=== PATIENT | female | born 1940 | race Caucasian/White ===

== ENCOUNTER 2019-08-30 15:49 | Inpatient (IN) ==
--- NOTE | 2019-08-30 16:48 | ERNOTE ---
Dizziness ER Record Date of Service: 08/30/19 Presenting Symptoms: weakness Time Seen by Provider: 08/30/19 16:37 Source: patient, family, RN notes reviewed Exam Limitations: dementia Immunizations: IMMUNIZATION HX Immunizations Up to Date Yes History of Influenza Vaccine No Hx Pneumococcal Vaccination No Allergies/Adverse Reactions: Allergies Allergy/AdvReac Type Severity Reaction Status Date / Time metronidazole [From Flagyl] Allergy Verified 08/30/19 16:01 Sulfa (Sulfonamide Allergy Verified 08/30/19 16:01 Antibiotics) Home Medications: HOME MEDICATIONS HYDROcodone/ACETAMINOPHEN [[place] 5-325 Tablet] 1 - 2 tab PO Q6H PRN #16 tab 02/06/16 [Last Taken Unknown] - History of Present Illness Narrative: 79 year old female patient brought to the ED from home by her family for weakness and confusion. She has dementia but lives independently with her boyfriend. She is usually able to do her own self cares but has not even been getting up to use the bathroom for the past few days. Her daughter reports that she has been coughing and seems more congested than usual. She was given a breathing treatment [employer]. Timing and Duration: gradual onset Decreased ability to stand/walk:: Present: bed-ridden Usually:: Present: walks w/o assistance Prior Treament: Denies: recently seen Review of Systems - Review of Systems Constitutional: Present: fatigue, malaise, decreased activity level EYE: Present: no symptoms reported ENT: Absent: nose congestion, sore throat Respiratory: Present: shortness of breath, cough. Absent: orthopnea Cardiology: Absent: chest pain, palpitations Gastrointestinal/Abdominal: Present: eating less, drinking less. Absent: vomiting, diarrhea, abdominal pain Genitourinary: Absent: dysuria, hematuria Musculoskeletal: Present: back pain, muscle pain Skin: Absent: rash, lesions, lumps, change in color Neurological: Present: dizziness/light-headedness, weakness. Absent: headache Endocrine: Present: no symptoms reported Hematologic/Lymphatic: Present: easy bruising, easy bleeding Psych: Present: no symptoms reported Medical History (Updated 08/30/19 @ 16:03 by Mary Kim RN) Family history of Alzheimer's disease History of COPD History of dementia History of neuropathy Hx of gastritis Hx of hiatal hernia Hx of hyperlipidemia Hx of hysterectomy Surgical History: Surgical History (Updated 08/30/19 @ 16:03 by Mary Kim RN) Hx of cholecystectomy Family History: Family History (Updated 08/30/19 @ 16:03 by Mary Kim RN) Other No pertinent family history Social History: (Last Reviewed 08/30/19 @ 18:31 by Selena Jackson NP) Social History: lives independently: Yes lives independently comment: w/ boyfriend household members: significant other Tobacco: Smoking Status: Former smoker Alcohol: alcohol intake: never Physical Exam - Physical Exam General Appearance: Present: alert, no apparent distress, obese Head Exam: Present: normal inspection Eye Exam: Normal inspection: bilateral Ears, Nose, Throat: Present: normal ENT inspection, normal pharynx Neck: Present: normal inspection, nontender, supple Respiratory: Present: no respiratory distress, accessory muscle use, expiration (prolonged), rales - Right lower lung Cardiovascular/Chest: Present: regular rate, rhythm, no murmur, normal peripheral pulses Gastrointestinal/Abdominal: Present: nontender, nondistended, soft Extremity Exam: Present: non-tender, pedal edema Neurological Exam: Present: alert, normal mood/affect, other - confused at times, pleasant Skin Exam: Present: warm/dry, pallor Progress - Results and Orders Patient's Lab Results:: I have reviewed the patient's lab results. - Vital Signs Patient's Vital Signs:: I have reviewed the patient's vital signs. Vital Signs: Vital Signs 08/30/19 15:58 08/30/19 16:00 Temperature 36.7 C 36.7 C Pulse Rate 81 85 Respiratory Rate 14 15 Blood Pressure 104/50 101/52 O2 Sat by Pulse Oximetry 91 L 97 - X-Ray X-Ray #1 X-Ray: chest Interpretation: Reviewed by me X-ray Comments: Technique: Single AP view of the chest obtained. Comparison: 02/06/2016 Findings: There is patchy consolidation in the right upper lobe and the right mid to lower lung field. There is some consolidation in the right lung base which may be atelectasis as there is elevation of the right hemidiaphragm. There is cardiomegaly. Vascularity appears within normal limits. IMPRESSION: RIGHT LUNG CONSOLIDATION APPEARS TO BE MULTILOBAR PNEUMONIA. RECOMMEND APPROPRIATE THERAPY AND FOLLOW-UP CHEST X-RAYS TO RESOLUTION OF THIS CONSOLIDATION TO EXCLUDE UNDERLYING PATHOLOGY. MILD CARDIOMEGALY. Electronically signed by Jai Cho M.D.. - Progress/Reassessment Chief Complaint: Dizziness Progress:: Unchanged Plan - Plan Plan: [place] [address] but a normal lactate. Her xray shows a right multilobar pneumonia. Her PSI score places her in risk category IV. Dr. Flores was contacted for admission. The patient will be started on Rocephin and Zithromax. Departure Clinical Impression: Pneumonia Qualifiers: Pneumonia type: due to unspecified organism Laterality: right Lung location: unspecified part of lung Qualified Code(s): J18.9 - Pneumonia, unspecified organism - Departure Disposition: Still a patient Condition: Stable
[2019-08-30 17:09] LABS: Hematocrit 27.5 % (37.0-47.0); Hemoglobin 8.8 gm/dL (12.5-16.0); Mean Cell Volume 87.9 fl (78-100); Mean Corpuscular Hemoglobin 28.1 pg (27-31); Mean Platelet Volume 10.5 fl (8-12.5); Platelet Count 227 K/mm3 (150-450); Red Blood Count 3.13 M/mm3 (4.2-5.4); Red Cell Distribution Width 16.3 % (11.5-14.0)
[2019-08-30 17:23] LABS: Total Cells Counted 100
[2019-08-30 17:27] LABS: Hypersegmented Polys Trace; Lymphocyte 14 % (20-51); Monocyte 2 % (0-9); Neutrophil 84 % (42-75); Neutrophil # 18.5 K/mm3 (1.3-6.0); Platelet Estimate Normal (NORMAL)
[2019-08-30 17:28] LABS: Ovalocytes Trace
[2019-08-30 17:29] LABS: ALT 12 U/L (19-67); AST 18 U/L (0-48); Albumin * 2.9 gm/dl (3.4-5.0); Alkaline Phosphatase * 101 U/L (50-170); Anion Gap 13.6 mmol/L (6.8-13.8); BNP * 819 pg/mL (5-550); Bilirubin, Total 0.7 mg/dL (0.0-1.1); Blood Urea Nitrogen 21 mg/dL (3-23); Ca. Corrected For Albumin 8.9 mg/dL (8.4-10.2); Calcium * 8.3 mg/dL (7.9-10.9); Carbon Dioxide 24.6 mmol/L (24-32.6); Chloride 106 mmol/L (97-106); Glucose * 111 mg/dL (70-110); Potassium 4.2 mmol/L (3.4-4.6); Sodium 140 mmol/L (132-142); Total Protein 6.5 gm/dL (6.2-8.2); Troponin I Less than 0.017 ng/mL (0.00-0.10)
[2019-08-30 17:48] LABS: Urine Bilirubin Negative (NEGATIVE); Urine Blood Negative /ul (NEGATIVE); Urine Ketone Negative (NEGATIVE); Urine Nitrite Negative (NEGATIVE); Urine Protein Negative (NEGATIVE); Urine Urobilinogen Normal (NORMAL); Urine pH 6.5 pH (5.0-7.0)
[2019-08-30 17:54] LABS: Urine Appearance Clear (CLEAR); Urine Bacteria 1+; Urine Color Pale Yellow; Urine RBC None Seen /hpf (0-5); Urine Renal Epithelial Cell TRACE /hpf; Urine WBC None Seen /hpf (0-5)
[2019-08-30] MEDS ORDERED: AZITHROMYCIN 250 MG TABLET PO ONE (18:37)
--- NOTE | 2019-08-30 18:45 | HP ---
Chief Complaint - Chief Complaint Date of Service: 08/30/19 Time of Service: 18:22 Chief Complaint: Altered mental status, hypoxia History of Present Illness: 79-year-old female with a past medical history of COPD, dementia, gastritis, hyperlipidemia presents with complaints of shortness of breath and altered mental status. Per her daughter and son who are at bedside symptoms began a few days ago. She began becoming more confused and unable to do her daily ADLs. Today she was found to have hypoxia with an oxygen saturation of 85%. Her family brought her to the emergency room. In the ER she was found to have leukocytosis of 22,000, anemia with H&H of 8.8/27.5, trace bacteria in the urine, chest x-ray shows right multilobar pneumonia. She is admitted for further event evaluation and management of pneumonia with status. Medical History (Updated 08/30/19 @ 18:49 by Meme Flores MD) Family history of Alzheimer's disease History of COPD History of dementia History of neuropathy Hx of gastritis Hx of hiatal hernia Hx of hyperlipidemia Hx of hysterectomy Surgical History: Surgical History (Updated 08/30/19 @ 16:03 by Mary Kim RN) Hx of cholecystectomy Family History: Family History (Updated 08/30/19 @ 16:03 by Mary Kim RN) Other No pertinent family history Social History: (Last Reviewed 08/30/19 @ 18:31 by Selena Jackson NP) Social History: lives independently: Yes lives independently comment: w/ boyfriend household members: significant other Tobacco: Smoking Status: Former smoker Alcohol: alcohol intake: never Review Of Systems (GEN) - Review of Systems Generalized/Overall Review: Present: Weakness. Absent: Chills, Fever EENTM: Absent: Eye Pain Respiratory: Present: Cough. Absent: Shortness of Breath Cardiac: Absent: Chest Pain Abdominal: Absent: Abdominal Pain Musculoskeletal: Present: Joint Pain Misc: All systems neg except as marked Immunizations: IMMUNIZATION HX Immunizations Up to Date Yes History of Influenza Vaccine No Hx Pneumococcal Vaccination No Allergies/Adverse Reactions: Allergies Allergy/AdvReac Type Severity Reaction Status Date / Time metronidazole [From Flagyl] Allergy Verified 08/30/19 16:01 Sulfa (Sulfonamide Allergy Verified 08/30/19 16:01 Antibiotics) Home Medications: HOME MEDICATIONS Acetaminophen [Tylenol] 500 mg PO Q3H PRN 08/30/19 [Last Taken Unknown] Albuterol Sulfate [Albuterol Sulfate 2.5 MG/0.5ML] 1 vial INHALATION BID 08/30/19 [Last Taken Unknown] Albuterol Sulfate [Albuterol Sulfate 2.5 MG/0.5ML] 1 vial INHALATION Q4H PRN 08/30/19 [Last Taken Unknown] Albuterol Sulfate [Proair Respiclick] 90 mcg INHALATION BID PRN 08/30/19 [Last Taken Unknown] Aspirin 81 mg PO DAILY 08/30/19 [Last Taken Unknown] Atorvastatin Calcium 10 mg PO DAILY 08/30/19 [Last Taken Unknown] Celecoxib 200 mg PO DAILY 08/30/19 [Last Taken Unknown] Citalopram Hydrobromide [Celexa] 40 mg PO DAILY 08/30/19 [Last Taken Unknown] Diltiazem HCl [Diltiazem 12Hr ER] 120 mg PO DAILY 08/30/19 [Last Taken Unknown] Donepezil HCl 10 mg PO DAILY 08/30/19 [Last Taken Unknown] Esomeprazole Magnesium 40 mg PO DAILY 08/30/19 [Last Taken Unknown] Fluticasone Propion/Salmeterol [Advair 500-50 Diskus] 2 puff INHALATION BID 08/30/19 [Last Taken Unknown] Fluticasone Propionate [Flovent Diskus] 50 mcg INHALATION DAILY 08/30/19 [Last Taken Unknown] Ipratropium Bolton [Ipratropium Bolton (Atrovent)] 0.5 mg INHALATION PRN PRN 08/30/19 [Last Taken Unknown] Isosorbide Dinitrate 30 mg PO DAILY 08/30/19 [Last Taken Unknown] Meclizine HCl 25 mg PO TID 08/30/19 [Last Taken Unknown] Melatonin 5 mg PO HS 08/30/19 [Last Taken Unknown] Memantine HCl 5 mg PO DAILY 08/30/19 [Last Taken Unknown] Montelukast Sodium [Singulair] 10 mg PO HS 08/30/19 [Last Taken Unknown] Nystatin 15 gm TOPICAL DAILY 08/30/19 [Last Taken Unknown] Polyethylene Glycol 3350 [Gavilax] 17 gm PO DAILY 08/30/19 [Last Taken Unknown] Pregabalin [Lyrica] 50 mg PO TID 08/30/19 [Last Taken Unknown] guaiFENesin [Mucus ER] 600 mg PO BID PRN 08/30/19 [Last Taken Unknown] traMADol HCL [Tramadol HCl] 50 mg PO Q6H PRN 08/30/19 [Last Taken Unknown] Exam - Exam Vital Signs: Vital Signs - Last Taken Temp 36.7 C 08/30/19 16:00 Pulse 83 08/30/19 18:30 Resp 15 08/30/19 18:30 BP 106/47 08/30/19 18:30 Pulse Ox 94 08/30/19 18:30 Constitutional: Present: Alert, Cooperative, Well developed, Well nourished, No distress, Elderly ENT Exam: Present: hearing grossly normal, moist mucous membranes Eye Exam: bilateral eye: normal inspection, PERRL, EOMI Neck: Present: non-tender, normal inspection. Absent: lymphadenopathy (R), lymphadenopathy (L) Back Exam: Present: normal inspection, no CVA tenderness Respiratory: Present: no accessory muscle use, rhonchi - Right lower lung rick, wheezing - Mild expiratory wheeze in bilateral lung rick. Absent: lungs clear, respiratory distress, crackles Cardiovascular/Chest: Present: normal peripheral pulses, regular rate, rhythm, no edema, no murmur Peripheral Pulses: dorsalis-pedis (R): 1+, dorsalis-pedis (L): 1+ Abdomen: Present: Normal bowel sounds, soft, nontender Extremity: Present: non-tender, no pedal edema Skin Exam: Present: normal color, warm/dry Neurologic: Present: alert, normal mood/affect Appearance: Present: impaired insight. Absent: appropriate insight Eye contact: Present: cooperative, good eye contact Thoughts: Present: normal mood /affect Diagnostic Studies: Abnormal Lab Results 08/30/19 08/30/19 08/30/19 Range/Units 16:50 16:50 17:35 WBC 22.0 H (4.0-10.5) K/mm3 RBC 3.13 L (4.2-5.4) M/mm3 Hgb 8.8 L (12.5-16.0) gm/dL Hct 27.5 L (37.0-47.0) % RDW 16.3 H (11.5-14.0) % Neutrophils % (Manual) 84 H (42-75) % Lymphocytes % (Manual) 14 L (20-51) % Neutrophils # (Manual) 18.5 H (1.3-6.0) K/mm3 Est GFR (Non-Af Amer) 57 L (60-130) mL/min Random Glucose 111 H (70-110) mg/dL ALT 12 L (19-67) U/L B-Natriuretic Peptide 819 H (5-550) pg/mL Albumin 2.9 L (3.4-5.0) gm/dl Urine Bacteria 1+ H (NONE) Laboratory Results WBC 22.0 K/mm3 (4.0-10.5) H 08/30/19 16:50 RBC 3.13 M/mm3 (4.2-5.4) L 08/30/19 16:50 Hgb 8.8 gm/dL (12.5-16.0) L 08/30/19 16:50 Hct 27.5 % (37.0-47.0) L 08/30/19 16:50 MCV 87.9 fl (78-100) 08/30/19 16:50 MCH 28.1 pg (27-31) 08/30/19 16:50 MCHC 32.0 g/dl (32-36) 08/30/19 16:50 RDW 16.3 % (11.5-14.0) H 08/30/19 16:50 Plt Count 227 K/mm3 (150-450) 08/30/19 16:50 MPV 10.5 fl (8-12.5) 08/30/19 16:50 84 % (42-75) H 08/30/19 16:50 14 % (20-51) L 08/30/19 16:50 2 % (0-9) 08/30/19 16:50 18.5 K/mm3 (1.3-6.0) H 08/30/19 16:50 3.1 k/mm3 (1.5-3.5) 08/30/19 16:50 0.4 k/mm3 (0.0-1.0) 08/30/19 16:50 Trace 08/30/19 16:50 Normal (NORMAL) 08/30/19 16:50 Trace 08/30/19 16:50 Sodium 140 mmol/L (132-142) 08/30/19 16:50 140 mmol/L (130-142) 08/30/19 16:50 Potassium 4.2 mmol/L (3.4-4.6) 08/30/19 16:50 Chloride 106 mmol/L (97-106) 08/30/19 16:50 Carbon Dioxide 24.6 mmol/L (24-32.6) 08/30/19 16:50 13.6 mmol/L (6.8-13.8) 08/30/19 16:50 BUN 21 mg/dL (3-23) 08/30/19 16:50 1.00 mg/dL (0.4-1.4) 08/30/19 16:50 Est GFR (Non-Af Amer) 57 mL/min (60-130) L 08/30/19 16:50 21.0 (9.0-21.6) 08/30/19 16:50 111 mg/dL (70-110) H 08/30/19 16:50 1.1 mmol/L (0.4-2.0) 08/30/19 16:50 Calcium 8.3 mg/dL (7.9-10.9) 08/30/19 16:50 Calcium Adj for Albumin 8.9 mg/dL (8.4-10.2) 08/30/19 16:50 0.7 mg/dL (0.0-1.1) 08/30/19 16:50 AST 18 U/L (0-48) 08/30/19 16:50 ALT 12 U/L (19-67) L 08/30/19 16:50 101 U/L (50-170) 08/30/19 16:50 Less than 0.017 ng/mL (0.00-0.10) 08/30/19 16:50 B-Natriuretic Peptide 819 pg/mL (5-550) H 08/30/19 16:50 6.5 gm/dL (6.2-8.2) 08/30/19 16:50 2.9 gm/dl (3.4-5.0) L 08/30/19 16:50 Pale yellow 08/30/19 17:35 Clear (CLEAR) 08/30/19 17:35 6.5 pH (5.0-7.0) 08/30/19 17:35 Ur Specific Hecker 1.010 SP.GR. (1.005-1.010) 08/30/19 17:35 Negative mg/dL (NEGATIVE) 08/30/19 17:35 Negative mg/dL (NEGATIVE) 08/30/19 17:35 Negative mg/dL (NEGATIVE) 08/30/19 17:35 Negative /ul (NEGATIVE) 08/30/19 17:35 Negative (NEGATIVE) 08/30/19 17:35 Negative mg/dl (NEGATIVE) 08/30/19 17:35 Normal EU/dl (NORMAL) 08/30/19 17:35 Ur Leukocyte Esterase Negative /ul (NEGATIVE) 08/30/19 17:35 None seen /hpf (0-5) 08/30/19 17:35 None seen /hpf (0-5) 08/30/19 17:35 Ur Epithelial Cells 0-5 /hpf (0-5) 08/30/19 17:35 Ur Renal Epithelial Cell Trace /hpf (NONE) 08/30/19 17:35 1+ (NONE) H 08/30/19 17:35 Culture to follow 08/30/19 17:35 Assessment/Plan - Narrative Narrative: 79-year-old female with a past medical history of COPD, dementia, gastritis, hyperlipidemia presents with complaints of shortness of breath and altered mental status. She is admitted for further event evaluation and management of pneumonia with status. She was started on azithromycin and ceftriaxone. Plan #1 continue with azithromycin and ceftriaxone #2 follow-up urine culture #3 obtain CMP and CBC in the morning #4 out of bed to chair #5 oxygen supplementation as needed to keep oxygenation greater than 92% #6 resume home medications for chronic comorbidities #7 diet soft, regular #8 monitor for any signs of bleeding - Assessment/Plan (1) Pneumonia Problem: Acute Qualifiers: Pneumonia type: due to group B Streptococcus Laterality: right Lung location: unspecified part of lung Qualified Code(s): J15.3 - Pneumonia due to streptococcus, group B (2) COPD (chronic obstructive pulmonary disease) Problem: Chronic (3) Anemia Problem: Chronic (4) Dementia Problem: Chronic (5) Confusion Problem: Acute (6) UTI (urinary tract infection) Problem: Suspected
[2019-08-30] MEDS: MONTELUKAST SODIUM 10 MG TABLET PO SCH (21:19)
[2019-08-30] MEDS: MELATONIN 3,000 MCG TABLET PO SCH (21:37)
[2019-08-31] MEDS: ACETAMINOPHEN 500 MG TABLET PO PRN ×2 (00:26→20:41)
[2019-08-31] MEDS: ALBUTEROL SULFATE 2.5 MG/0.5 ML VIAL.NEB IH PRN ×2 (00:37→21:08)
[2019-08-31 05:36] LABS: Hematocrit 29.5 % (37.0-47.0); Hemoglobin 9.3 gm/dL (12.5-16.0); Mean Cell Volume 88.6 fl (78-100); Mean Corpuscular Hemoglobin 27.9 pg (27-31); Mean Corpuscular Hgb Conc 31.5 g/dl (32-36); Mean Platelet Volume 10.6 fl (8-12.5); Neutrophil # 18.8 K/mm3 (1.3-6.0); Neutrophil % 87.2 % (42-75.0); Platelet Count 233 K/mm3 (150-450); Red Blood Count 3.33 M/mm3 (4.2-5.4); Red Cell Distribution Width 16.2 % (11.5-14.0); White Blood Count 21.5 K/mm3 (4.0-10.5)
[2019-08-31 05:56] LABS: Albumin * 3.1 gm/dl (3.4-5.0); Anion Gap 14.8 mmol/L (6.8-13.8); BUN/Creatinine Ratio 23.3 (9.0-21.6); Bilirubin, Total 0.5 mg/dL (0.0-1.1); Ca. Corrected For Albumin 8.9 mg/dL (8.4-10.2); Calcium * 8.5 mg/dL (7.9-10.9); Carbon Dioxide 24.1 mmol/L (24-32.6); Potassium 3.9 mmol/L (3.4-4.6); Total Protein 6.9 gm/dL (6.2-8.2)
[2019-08-31] MEDS: PANTOPRAZOLE SODIUM 40 MG TABLET.EC PO SCH (07:36)
[2019-08-31] MEDS: MEMANTINE HCL 10 MG TABLET PO SCH (08:46)
[2019-08-31] MEDS: DONEPEZIL HCL 10 MG TABLET PO SCH (08:46)
[2019-08-31] MEDS: CITALOPRAM HYDROBROMIDE 20 MG TABLET PO SCH (08:47)
[2019-08-31] MEDS: NYSTATIN 30 APPL TUBE TP SCH (08:48)
[2019-08-31] MEDS: POLYETHYLENE GLYCOL 3350 17 GM PACKET PO SCH (08:48)
[2019-08-31] MEDS: PREGABALIN 50 MG CAPSULE PO SCH ×3 (08:51→17:45)
[2019-08-31] MEDS ORDERED: DILTIAZEM HCL 60 MG CAP.SR.12H PO SCH (09:00)
[2019-08-31] MEDS ORDERED: ROSUVASTATIN CALCIUM 10 MG TABLET PO SCH (09:00)
[2019-08-31] MEDS ORDERED: FLU VACC QS2019-20(6MOS UP)/PF 60 MCG/0.5 ML SYRINGE IM ONE (10:00)
[2019-08-31] MEDS: AZITHROMYCIN 500 MG in DEXTROSE 5 % IN WATER 250 ML IV SCH ×2 (10:06)
[2019-08-31] MEDS: ENOXAPARIN SODIUM 40 MG/0.4 ML SYRG SC SCH (11:06)
[2019-08-31] MEDS: ISOSORBIDE DINITRATE 10 MG TABLET PO SCH (11:08)
--- NOTE | 2019-08-31 11:58 | PN ---
Subjective - Date and Time Seen Date: 08/31/19 Time: 08:55 Subjective Narrative: She denies shortness of breath and complains of a right breast tenderness. She complains of knee pain and irritation in her groin. Denies cough Objective - Review of Systems Generalized/Overall Review: Denies: Chills, Fever Respiratory: Denies: Cough, Shortness of Breath Cardiac: Reports: Chest Pain - Right breast tenderness Abdominal: Denies: Abdominal Pain Musculoskeletal Complaints: Reports: Joint Pain - In her knees Misc: All systems neg except as marked - Vitals Vitals: Last Vital Signs Temp 37.2 C 08/31/19 10:30 Pulse 83 08/31/19 10:30 Resp 20 08/31/19 10:30 BP 153/63 H 08/31/19 10:30 Pulse Ox 93 08/31/19 10:30 - Abnormal Lab Findings Abnormal Lab Findings: Abnormal Lab Results 08/30/19 08/30/19 08/30/19 Range/Units 16:50 16:50 17:35 WBC 22.0 H (4.0-10.5) K/mm3 RBC 3.13 L (4.2-5.4) M/mm3 Hgb 8.8 L (12.5-16.0) gm/dL Hct 27.5 L (37.0-47.0) % MCHC (32-36) g/dl RDW 16.3 H (11.5-14.0) % Immature Gran % (Auto) (0.001-0.429) % Immature Gran # (Auto) (0.000-0.0310) K/mm3 Neutrophils % (42-75.0) % Neutrophils % (Manual) 84 H (42-75) % Lymphocytes % (20-51) % Lymphocytes % (Manual) 14 L (20-51) % Neutrophils # (1.3-6.0) K/mm3 Neutrophils # (Manual) 18.5 H (1.3-6.0) K/mm3 Anion Gap (6.8-13.8) mmol/L Est GFR (Non-Af Amer) 57 L (60-130) mL/min BUN/Creatinine Ratio (9.0-21.6) Random Glucose 111 H (70-110) mg/dL ALT 12 L (19-67) U/L B-Natriuretic Peptide 819 H (5-550) pg/mL Albumin 2.9 L (3.4-5.0) gm/dl Urine Bacteria 1+ H (NONE) 08/31/19 08/31/19 Range/Units 05:32 05:32 WBC 21.5 H (4.0-10.5) K/mm3 RBC 3.33 L (4.2-5.4) M/mm3 Hgb 9.3 L (12.5-16.0) gm/dL Hct 29.5 L (37.0-47.0) % MCHC 31.5 L (32-36) g/dl RDW 16.2 H (11.5-14.0) % Immature Gran % (Auto) 1.40 H (0.001-0.429) % Immature Gran # (Auto) 0.31 H (0.000-0.0310) K/mm3 Neutrophils % 87.2 H (42-75.0) % Neutrophils % (Manual) (42-75) % Lymphocytes % 8.0 L (20-51) % Lymphocytes % (Manual) (20-51) % Neutrophils # 18.8 H (1.3-6.0) K/mm3 Neutrophils # (Manual) (1.3-6.0) K/mm3 Anion Gap 14.8 H (6.8-13.8) mmol/L Est GFR (Non-Af Amer) (60-130) mL/min BUN/Creatinine Ratio 23.3 H (9.0-21.6) Random Glucose (70-110) mg/dL ALT 10 L (19-67) U/L B-Natriuretic Peptide (5-550) pg/mL Albumin 3.1 L (3.4-5.0) gm/dl Urine Bacteria (NONE) - Exam Constitutional: Present: Alert, Well developed, Well nourished, No distress, Elderly. Absent: Oriented x3 - Oriented to person only ENT Exam: Present: hearing grossly normal Neck: Present: non-tender, trachea midline. Absent: lymphadenopathy (R), lymphadenopathy (L) Respiratory: Present: no accessory muscle use, rhonchi - Right lower lung field Cardiovascular/Chest: Present: normal peripheral pulses, regular rate, rhythm, n o murmur Abdomen: Present: Normal bowel sounds, soft, nontender, obese Extremity: Present: no pedal edema Skin Exam: Present: normal color, warm/dry Neurologic: Present: alert, normal mood/affect Appearance: Present: appropriate appearance, impaired insight Eye contact: Present: cooperative, good eye contact Thoughts: Present: normal mood /affect Assessment/Plan Plan Narrative: 79-year-old female with a past medical history of COPD, dementia, gastritis, hyperlipidemia presents with complaints of shortness of breath and altered mental status. She is admitted for further event evaluation and management of pneumonia with status. She was started on azithromycin and ceftriaxone. Plan #1 continue with azithromycin and ceftriaxone day 2 #2 follow-up urine culture shows no growth #3 Leukocytosis essentially unchanged, repeat CBC and CMP in the morning #4 out of bed to chair #5 oxygen supplementation as needed to keep oxygenation greater than 92% #6 resume home medications for chronic comorbidities #7 diet soft, regular #8 H&H has improved, no active bleeding #9 transition to inpatient status #10 DVT prophylaxis with Lovenox. - Problems/Diagnosis (1) Pneumonia Problem: Acute Qualifiers: Pneumonia type: due to group B Streptococcus Laterality: right Lung location: unspecified part of lung Qualified Code(s): J15.3 - Pneumonia due to streptococcus, group B (2) COPD (chronic obstructive pulmonary disease) Problem: Chronic (3) Anemia Problem: Chronic (4) Dementia Problem: Chronic (5) Confusion Problem: Acute (6) UTI (urinary tract infection) Problem: Suspected
[2019-08-31] MEDS: DILTIAZEM HCL 120 MG CAP.SR.24H PO SCH (12:47)
[2019-08-31] MEDS: ROSUVASTATIN CALCIUM 10 MG TABLET PO SCH (20:43)
[2019-08-31] MEDS: MELATONIN 3,000 MCG TABLET PO SCH (20:43)
[2019-08-31] MEDS: MONTELUKAST SODIUM 10 MG TABLET PO SCH (20:43)
[2019-09-01 05:44] LABS: Hematocrit 28.4 % (37.0-47.0); Hemoglobin 8.9 gm/dL (12.5-16.0); Mean Cell Volume 88.5 fl (78-100); Mean Corpuscular Hemoglobin 27.7 pg (27-31); Mean Corpuscular Hgb Conc 31.3 g/dl (32-36); Mean Platelet Volume 10.8 fl (8-12.5); Neutrophil # 10.5 K/mm3 (1.3-6.0); Neutrophil % 79.8 % (42-75.0); Platelet Count 242 K/mm3 (150-450); Red Blood Count 3.21 M/mm3 (4.2-5.4); White Blood Count 13.1 K/mm3 (4.0-10.5)
[2019-09-01 05:54] LABS: Albumin * 2.9 gm/dl (3.4-5.0); BUN/Creatinine Ratio 16.3 (9.0-21.6); Bilirubin, Total 0.3 mg/dL (0.0-1.1); Ca. Corrected For Albumin 9.3 mg/dL (8.4-10.2); Calcium * 8.7 mg/dL (7.9-10.9); Carbon Dioxide 25.5 mmol/L (24-32.6); Potassium 3.5 mmol/L (3.4-4.6); Total Protein 6.5 gm/dL (6.2-8.2)
[2019-09-01] MEDS: PANTOPRAZOLE SODIUM 40 MG TABLET.EC PO SCH (07:05)
[2019-09-01] MEDS: ACETAMINOPHEN 500 MG TABLET PO PRN ×3 (07:06→17:16)
[2019-09-01] MEDS: POLYETHYLENE GLYCOL 3350 17 GM PACKET PO SCH (08:03)
[2019-09-01] MEDS: DILTIAZEM HCL 120 MG CAP.SR.24H PO SCH (08:04)
[2019-09-01] MEDS: ISOSORBIDE DINITRATE 10 MG TABLET PO SCH (08:04)
[2019-09-01] MEDS: MEMANTINE HCL 10 MG TABLET PO SCH (08:04)
[2019-09-01] MEDS: DONEPEZIL HCL 10 MG TABLET PO SCH (08:04)
[2019-09-01] MEDS: CITALOPRAM HYDROBROMIDE 20 MG TABLET PO SCH (08:05)
[2019-09-01] MEDS: PREGABALIN 50 MG CAPSULE PO SCH ×3 (08:07→17:15)
[2019-09-01] MEDS: NYSTATIN 30 APPL TUBE TP SCH (08:14)
[2019-09-01] MEDS: AZITHROMYCIN 500 MG in DEXTROSE 5 % IN WATER 250 ML IV SCH ×2 (09:30)
--- NOTE | 2019-09-01 09:36 | PN ---
Subjective - Date and Time Seen Date: 09/01/19 Time: 08:58 Subjective Narrative: She states she feels better today. She has a nonproductive cough and complains of chills. She also complains of pain in her knees and both breast. She states her weakness has improved. Objective - Review of Systems Generalized/Overall Review: Reports: Weakness. Denies: Chills, Fever Respiratory: Reports: Cough, Shortness of Breath Cardiac: Reports: Other - She complains of pain in both breast. Denies: Chest Pain Abdominal: Denies: Abdominal Pain Musculoskeletal Complaints: Reports: Joint Pain - Both knees Misc: All systems neg except as marked - Vitals Vitals: Last Vital Signs Temp 37.0 C 09/01/19 06:46 Pulse 68 09/01/19 08:04 Resp 16 09/01/19 06:46 BP 115/68 09/01/19 08:04 Pulse Ox 93 09/01/19 06:46 - Abnormal Lab Findings Abnormal Lab Findings: Abnormal Lab Results 09/01/19 09/01/19 Range/Units 05:37 05:37 WBC 13.1 H D (4.0-10.5) K/mm3 RBC 3.21 L (4.2-5.4) M/mm3 Hgb 8.9 L (12.5-16.0) gm/dL Hct 28.4 L (37.0-47.0) % MCHC 31.3 L (32-36) g/dl RDW 16.0 H (11.5-14.0) % Immature Gran % (Auto) 0.90 H (0.001-0.429) % Immature Gran # (Auto) 0.12 H (0.000-0.0310) K/mm3 Neutrophils % 79.8 H (42-75.0) % Lymphocytes % 14.1 L (20-51) % Neutrophils # 10.5 H (1.3-6.0) K/mm3 Sodium 143 H (132-142) mmol/L Plasma Sodium 143 H (130-142) mmol/L Chloride 107 H (97-106) mmol/L Anion Gap 14.0 H (6.8-13.8) mmol/L ALT 9 L (19-67) U/L Albumin 2.9 L (3.4-5.0) gm/dl - Exam Constitutional: Present: Alert, Cooperative, Well developed, Well nourished, Elderly ENT Exam: Present: hearing grossly normal Neck: Present: non-tender, trachea midline. Absent: lymphadenopathy (R), lymphadenopathy (L) Breasts: Present: Other - Tenderness to palpation of the upper aspect of both breasts, no erythema, no mass palpated Respiratory: Present: no respiratory distress, no accessory muscle use, wheezing - Mild end expiratory wheeze noted, otherwise lung sounds are improved. Absent: crackles, rhonchi Cardiovascular/Chest: Present: normal peripheral pulses, regular rate, rhythm, no edema, no murmur Abdomen: Present: Normal bowel sounds, soft, nontender Extremity: Present: no pedal edema Skin Exam: Present: normal color, warm/dry Appearance: Present: appropriate appearance, impaired insight Eye contact: Present: cooperative, good eye contact Thoughts: Present: normal mood /affect Assessment/Plan Plan Narrative: 79-year-old female with a past medical history of COPD, dementia, gastritis, hyperlipidemia presents with complaints of shortness of breath and altered mental status. She is admitted for further event evaluation and management of pneumonia. She was started on azithromycin and ceftriaxone. Plan #1 continue with azithromycin and ceftriaxone day 3 #2 follow-up urine culture shows no growth #3 Leukocytosis is downtrending, repeat CBC and CMP in the morning #4 out of bed to chair #5 Oxygen well on room air #6 Continue with home medications for chronic comorbidities #7 diet soft, regular #8 H&H is stable, no active bleeding #9 DVT prophylaxis with Lovenox. #10 encourage oral hydration to treat the mild hyponatremia #11 continue with Tylenol as needed for joint and breast pain. Breast pain is likely musculoskelel in origin. - Problems/Diagnosis (1) Pneumonia Problem: Acute Qualifiers: Pneumonia type: due to group B Streptococcus Laterality: right Lung location: unspecified part of lung Qualified Code(s): J15.3 - Pneumonia due to streptococcus, group B (2) COPD (chronic obstructive pulmonary disease) Problem: Chronic (3) Anemia Problem: Chronic (4) Dementia Problem: Chronic (5) Confusion Problem: Acute (6) UTI (urinary tract infection) Problem: Ruled-out (7) Acute hypernatremia Problem: Acute
[2019-09-01] MEDS: ENOXAPARIN SODIUM 40 MG/0.4 ML SYRG SC SCH (09:38)
[2019-09-01] MEDS: ROSUVASTATIN CALCIUM 10 MG TABLET PO SCH (20:21)
[2019-09-01] MEDS: MONTELUKAST SODIUM 10 MG TABLET PO SCH (20:21)
[2019-09-01] MEDS: MELATONIN 3,000 MCG TABLET PO SCH (20:21)
[2019-09-02 05:42] LABS: Hematocrit 31.9 % (37.0-47.0); Hemoglobin 9.4 gm/dL (12.5-16.0); Mean Cell Volume 93.8 fl (78-100); Mean Corpuscular Hemoglobin 27.6 pg (27-31); Mean Corpuscular Hgb Conc 29.5 g/dl (32-36); Mean Platelet Volume 10.6 fl (8-12.5); Neutrophil # 6.2 K/mm3 (1.3-6.0); Neutrophil % 67.2 % (42-75.0); Platelet Count 247 K/mm3 (150-450); Red Cell Distribution Width 16.1 % (11.5-14.0); White Blood Count 9.2 K/mm3 (4.0-10.5)
[2019-09-02 06:05] LABS: Albumin * 2.9 gm/dl (3.4-5.0); Anion Gap 12.8 mmol/L (6.8-13.8); BUN/Creatinine Ratio 16.3 (9.0-21.6); Bilirubin, Total 0.3 mg/dL (0.0-1.1); Ca. Corrected For Albumin 9.4 mg/dL (8.4-10.2); Calcium * 8.8 mg/dL (7.9-10.9); Carbon Dioxide 24.6 mmol/L (24-32.6); Potassium 3.4 mmol/L (3.4-4.6); Total Protein 6.6 gm/dL (6.2-8.2)
[2019-09-02] MEDS: ACETAMINOPHEN 500 MG TABLET PO PRN ×2 (07:16→10:16)
[2019-09-02] MEDS: PANTOPRAZOLE SODIUM 40 MG TABLET.EC PO SCH (07:16)
[2019-09-02] MEDS: AZITHROMYCIN 500 MG in DEXTROSE 5 % IN WATER 250 ML IV SCH ×2 (08:51)
[2019-09-02] MEDS: DILTIAZEM HCL 120 MG CAP.SR.24H PO SCH (08:54)
[2019-09-02] MEDS: ISOSORBIDE DINITRATE 10 MG TABLET PO SCH (08:54)
[2019-09-02] MEDS: DONEPEZIL HCL 10 MG TABLET PO SCH (08:54)
[2019-09-02] MEDS: CITALOPRAM HYDROBROMIDE 20 MG TABLET PO SCH (08:54)
[2019-09-02] MEDS: MEMANTINE HCL 10 MG TABLET PO SCH (08:54)
[2019-09-02] MEDS: NYSTATIN 30 APPL TUBE TP SCH (08:55)
[2019-09-02] MEDS: ENOXAPARIN SODIUM 40 MG/0.4 ML SYRG SC SCH (08:55)
[2019-09-02] MEDS: POLYETHYLENE GLYCOL 3350 17 GM PACKET PO SCH (08:55)
[2019-09-02] MEDS: PREGABALIN 50 MG CAPSULE PO SCH ×3 (08:57→16:36)
--- NOTE | 2019-09-02 09:35 | PN ---
Subjective - Date and Time Seen Date: 09/02/19 Time: 08:25 Subjective Narrative: She states she feels well today. Denies chest pain, abdominal pain. She states she has been moving her bowels a lot and had one large bowel movement today. Objective - Review of Systems Generalized/Overall Review: Denies: Chills, Fever Respiratory: Denies: Cough, Shortness of Breath Cardiac: Denies: Chest Pain Abdominal: Denies: Abdominal Pain Misc: All systems neg except as marked - Vitals Vitals: Last Vital Signs Temp 36.6 C 09/02/19 06:00 Pulse 73 09/02/19 08:54 Resp 20 09/02/19 06:00 BP 121/44 09/02/19 08:54 Pulse Ox 90 L 09/02/19 06:00 - Abnormal Lab Findings Abnormal Lab Findings: Abnormal Lab Results 09/02/19 09/02/19 Range/Units 05:15 05:15 RBC 3.40 L (4.2-5.4) M/mm3 Hgb 9.4 L (12.5-16.0) gm/dL Hct 31.9 L (37.0-47.0) % MCHC 29.5 L (32-36) g/dl RDW 16.1 H (11.5-14.0) % Immature Gran % (Auto) 1.20 H (0.001-0.429) % Immature Gran # (Auto) 0.11 H (0.000-0.0310) K/mm3 Neutrophils # 6.2 H (1.3-6.0) K/mm3 Sodium 143 H (132-142) mmol/L Plasma Sodium 143 H (130-142) mmol/L Chloride 109 H (97-106) mmol/L ALT 8 L (19-67) U/L Albumin 2.9 L (3.4-5.0) gm/dl - Exam Constitutional: Present: Alert, Cooperative, Well developed, Well nourished, Elderly ENT Exam: Present: hearing grossly normal Neck: Absent: lymphadenopathy (R), lymphadenopathy (L) Respiratory: Present: lungs clear, no respiratory distress, no accessory muscle use, No wheezing. Absent: crackles, rhonchi Cardiovascular/Chest: Present: normal peripheral pulses, regular rate, rhythm, no edema, no murmur Abdomen: Present: Normal bowel sounds, soft, nontender Extremity: Present: no pedal edema Skin Exam: Present: normal color, warm/dry Neurologic: Present: alert, normal mood/affect Appearance: Present: appropriate appearance, impaired insight, impaired recent memory Eye contact: Present: cooperative, good eye contact Thoughts: Present: normal mood /affect Assessment/Plan Plan Narrative: 79-year-old female with a past medical history of COPD, dementia, gastritis, hyperlipidemia presents with complaints of shortness of breath and altered mental status. She is admitted for further event evaluation and management of pneumonia. She was started on azithromycin and ceftriaxone. Plan #1 continue with azithromycin and ceftriaxone day 4 #2 follow-up urine culture shows no growth #3 Leukocytosis continues to improving repeat CBC and CMP in the morning #4 out of bed to chair #5 Oxygen well on room air #6 Continue with home medications for chronic comorbidities #7 diet soft, regular #8 H&H is stable, no active bleeding #9 DVT prophylaxis with Lovenox. #10 encourage oral hydration to treat the mild hyponatremia #11 continue with Tylenol as needed for joint and breast pain. Breast pain is likely musculoskelel in origin. - Problems/Diagnosis (1) Pneumonia Problem: Acute Qualifiers: Pneumonia type: due to group B Streptococcus Laterality: right Lung location: unspecified part of lung Qualified Code(s): J15.3 - Pneumonia due to streptococcus, group B (2) COPD (chronic obstructive pulmonary disease) Problem: Chronic (3) Anemia Problem: Chronic (4) Dementia Problem: Chronic (5) Confusion Problem: Resolved (6) UTI (urinary tract infection) Problem: Ruled-out (7) Acute hypernatremia Problem: Acute
[2019-09-02] MEDS: traMADol HCL 50 MG TABLET PO PRN ×2 (12:43→20:53)
[2019-09-02] MEDS: ALBUTEROL SULFATE 2.5 MG/0.5 ML VIAL.NEB IH PRN (15:24)
[2019-09-02] MEDS: IPRATROPIUM BROMIDE 0.5 MG/2.5 ML VIAL.NEB IH PRN (15:24)
[2019-09-02] MEDS: ROSUVASTATIN CALCIUM 10 MG TABLET PO SCH (20:54)
[2019-09-02] MEDS: MONTELUKAST SODIUM 10 MG TABLET PO SCH (20:55)
[2019-09-02] MEDS: MELATONIN 3,000 MCG TABLET PO SCH (20:55)
[2019-09-03 06:25] LABS: Hematocrit 29.4 % (37.0-47.0); Hemoglobin 9.1 gm/dL (12.5-16.0); Mean Cell Volume 88.8 fl (78-100); Mean Corpuscular Hemoglobin 27.5 pg (27-31); Mean Platelet Volume 10.3 fl (8-12.5); Neutrophil # 4.6 K/mm3 (1.3-6.0); Neutrophil % 56.1 % (42-75.0); Platelet Count 244 K/mm3 (150-450); Red Blood Count 3.31 M/mm3 (4.2-5.4); Red Cell Distribution Width 15.9 % (11.5-14.0); White Blood Count 8.2 K/mm3 (4.0-10.5)
[2019-09-03 07:21] LABS: Albumin * 2.7 gm/dl (3.4-5.0); Anion Gap 9.4 mmol/L (6.8-13.8); BUN/Creatinine Ratio 15.9 (9.0-21.6); Bilirubin, Total 0.3 mg/dL (0.0-1.1); Ca. Corrected For Albumin 8.8 mg/dL (8.4-10.2); Calcium * 8.1 mg/dL (7.9-10.9); Carbon Dioxide 26.9 mmol/L (24-32.6); Potassium 3.3 mmol/L (3.4-4.6); Total Protein 6.4 gm/dL (6.2-8.2)
[2019-09-03] MEDS: PANTOPRAZOLE SODIUM 40 MG TABLET.EC PO SCH (08:24)
[2019-09-03] MEDS: AZITHROMYCIN 500 MG in DEXTROSE 5 % IN WATER 250 ML IV SCH ×2 (09:01)
[2019-09-03] MEDS: POLYETHYLENE GLYCOL 3350 17 GM PACKET PO SCH (09:02)
[2019-09-03] MEDS: NYSTATIN 30 APPL TUBE TP SCH (09:04)
[2019-09-03] MEDS: ENOXAPARIN SODIUM 40 MG/0.4 ML SYRG SC SCH (09:43)
[2019-09-03] MEDS: DILTIAZEM HCL 120 MG CAP.SR.24H PO SCH (09:44)
[2019-09-03] MEDS: DONEPEZIL HCL 10 MG TABLET PO SCH (09:44)
[2019-09-03] MEDS: CITALOPRAM HYDROBROMIDE 20 MG TABLET PO SCH (09:44)
[2019-09-03] MEDS: ISOSORBIDE DINITRATE 10 MG TABLET PO SCH (09:45)
[2019-09-03] MEDS: MEMANTINE HCL 10 MG TABLET PO SCH (09:45)
[2019-09-03] MEDS: PREGABALIN 50 MG CAPSULE PO SCH ×3 (09:46→17:50)
[2019-09-03] MEDS: traMADol HCL 50 MG TABLET PO PRN (09:59)
--- NOTE | 2019-09-03 10:56 | PN ---
Subjective - Date and Time Seen Date: 09/03/19 Time: 10:52 Subjective Narrative: patient she is doing better. Lab called and said she has 1 bottle growing Staph Epi. possible NH placement on Thursday. Objective - Review of Systems Generalized/Overall Review: Reports: Weakness. Denies: Chills, Fever EENTM: Denies: Blurred Vision Respiratory: Reports: Cough, Wheezing. Denies: Shortness of Breath, Orthopnea Cardiac: Denies: Chest Pain, Edema, Palpitations Abdominal: Denies: Nausea, Vomiting, Abdominal Pain Genitourinary Symptoms: Denies: Urgency, Frequency Musculoskeletal Complaints: Denies: Joint Pain, Back Pain Neurological: Denies: Headache Skin: Denies: Lesions, Rash Misc: All systems neg except as marked - maybe unreliable due to her history of dementia - Vitals Vitals: Last Vital Signs Temp 37 C 09/03/19 10:35 Pulse 71 09/03/19 10:35 Resp 20 09/03/19 10:35 BP 112/49 09/03/19 10:35 Pulse Ox 91 L 09/03/19 10:35 - Abnormal Lab Findings Abnormal Lab Findings: Abnormal Lab Results 09/03/19 09/03/19 Range/Units 06:00 06:00 RBC 3.31 L (4.2-5.4) M/mm3 Hgb 9.1 L (12.5-16.0) gm/dL Hct 29.4 L (37.0-47.0) % MCHC 31.0 L (32-36) g/dl RDW 15.9 H (11.5-14.0) % Immature Gran % (Auto) 2.40 H (0.001-0.429) % Immature Gran # (Auto) 0.20 H (0.000-0.0310) K/mm3 Eosinophils % 3.3 H (0.0-3.0) % Potassium 3.3 L (3.4-4.6) mmol/L Chloride 108 H (97-106) mmol/L ALT 11 L (19-67) U/L Albumin 2.7 L (3.4-5.0) gm/dl - Exam Constitutional: Present: Alert, Oriented x3, Cooperative, Obese ENT Exam: Present: hearing grossly normal Neck: Present: supple. Absent: lymphadenopathy (R), lymphadenopathy (L) Respiratory: Present: decreased breath sounds, wheezing - occasional, No rales Cardiovascular/Chest: Present: regular rate, rhythm, no JVD, no murmur Abdomen: Present: Normal bowel sounds, soft, nontender, obese Extremity: Present: no calf tenderness, pedal edema Assessment/Plan Plan Narrative: Mikaela is an 79-year-old white female who was admitted for pneumonia and urinary tract infection (which was ruled out -urine culture and sensitivity showed no growth). She is growing Staphylococcus epidermidis in 1 bottle out of 2. She has had 4 days of IV Rocephin and oral Zithromax. Her white blood cell count is back to normal. Although staph epi is likely a a contaminant we will transition her anyway to Levaquin as she needs this for her pneumonia ( the staph epi is also sensitive to this). She is for possible correction placement on Thursday or home with home health. - Problems/Diagnosis (1) Bacteremia Problem: Acute Narrative: contaminant more than true bacteremia (2) Pneumonia Problem: Acute Qualifiers: Pneumonia type: due to group B Streptococcus Laterality: right Lung location: unspecified part of lung Qualified Code(s): J15.3 - Pneumonia due to streptococcus, group B (3) COPD (chronic obstructive pulmonary disease) Problem: Chronic (4) Dementia Problem: Chronic (5) Acute hypernatremia Problem: Resolved (6) UTI (urinary tract infection) Problem: Ruled-out Narrative: CRISTOFER HERNANDEZ
[2019-09-03] MEDS: LEVOFLOXACIN IN DEXTROSE 5 % 500 MG/100 ML BAG IV SCH (11:10)
[2019-09-03] MEDS: DENTAL ADHESIVE 39 APPL TUBE TP SCH (13:37)
[2019-09-03] MEDS: ACETAMINOPHEN 500 MG TABLET PO PRN (15:16)
[2019-09-03] MEDS: IPRATROPIUM BROMIDE 0.5 MG/2.5 ML VIAL.NEB IH PRN (19:16)
[2019-09-03] MEDS: ALBUTEROL SULFATE 2.5 MG/0.5 ML VIAL.NEB IH PRN (19:20)
[2019-09-03] MEDS: ROSUVASTATIN CALCIUM 10 MG TABLET PO SCH (21:15)
[2019-09-03] MEDS: MELATONIN 3,000 MCG TABLET PO SCH (21:15)
[2019-09-03] MEDS: MONTELUKAST SODIUM 10 MG TABLET PO SCH (21:16)
[2019-09-04] MEDS: traMADol HCL 50 MG TABLET PO PRN ×3 (00:33→22:50)
[2019-09-04] MEDS: PANTOPRAZOLE SODIUM 40 MG TABLET.EC PO SCH (07:12)
[2019-09-04] MEDS: ISOSORBIDE DINITRATE 10 MG TABLET PO SCH (09:23)
[2019-09-04] MEDS: DILTIAZEM HCL 120 MG CAP.SR.24H PO SCH (09:24)
[2019-09-04] MEDS: DONEPEZIL HCL 10 MG TABLET PO SCH (09:24)
[2019-09-04] MEDS: CITALOPRAM HYDROBROMIDE 20 MG TABLET PO SCH (09:24)
[2019-09-04] MEDS: POLYETHYLENE GLYCOL 3350 17 GM PACKET PO SCH (09:24)
[2019-09-04] MEDS: MEMANTINE HCL 10 MG TABLET PO SCH (09:25)
[2019-09-04] MEDS: ENOXAPARIN SODIUM 40 MG/0.4 ML SYRG SC SCH (09:26)
[2019-09-04] MEDS: DENTAL ADHESIVE 39 APPL TUBE TP SCH (09:28)
[2019-09-04] MEDS: PREGABALIN 50 MG CAPSULE PO SCH ×3 (09:31→16:35)
[2019-09-04] MEDS: NYSTATIN 30 APPL TUBE TP SCH (09:34)
--- NOTE | 2019-09-04 10:27 | PN ---
Subjective - Date and Time Seen Date: 09/04/19 Time: 10:24 Subjective Narrative: patient NAD. possible discharge tomorrow. Objective - Review of Systems Generalized/Overall Review: Denies: Weakness, Chills, Fever EENTM: Denies: Blurred Vision Respiratory: Denies: Cough, Shortness of Breath, Orthopnea Cardiac: Denies: Chest Pain, Edema Abdominal: Denies: Nausea, Vomiting, Abdominal Pain Genitourinary Symptoms: Denies: Urgency, Frequency Musculoskeletal Complaints: Denies: Joint Pain Neurological: Denies: Headache Skin: Denies: Lesions, Rash Misc: All systems neg except as marked - Vitals Vitals: Last Vital Signs Temp 36.7 C 09/04/19 06:28 Pulse 78 09/04/19 09:24 Resp 18 09/04/19 06:28 BP 151/60 H 09/04/19 09:24 Pulse Ox 95 09/04/19 06:28 - Exam Constitutional: Present: Alert, Oriented x3 ENT Exam: Present: hearing grossly normal Neck: Present: supple. Absent: lymphadenopathy (R), lymphadenopathy (L) Respiratory: Present: decreased breath sounds, No rales, No wheezing Cardiovascular/Chest: Present: regular rate, rhythm, no JVD, no murmur Abdomen: Present: Normal bowel sounds, soft, nontender, nondistended Extremity: Present: no calf tenderness, pedal edema Assessment/Plan Plan Narrative: Mikaela Padron is an 79-year-old white female admitted for pneumonia. Her urine culture showed no growth however her blood culture showed staph epi in 1 bottle out of 2 which is most likely a contaminant rather than a true bacteremia. I did put her on IV Levaquin yesterday per sensitivity as she will need anyway to be transitioned to an oral antibiotic for her pneumonia when she gets possibly discharged tomorrow. - Problems/Diagnosis (1) Bacteremia Problem: Acute (2) Pneumonia Problem: Acute Qualifiers: Pneumonia type: due to group B Streptococcus Laterality: right Lung location: unspecified part of lung Qualified Code(s): J15.3 - Pneumonia due to streptococcus, group B (3) COPD (chronic obstructive pulmonary disease) Problem: Chronic (4) Dementia Problem: Chronic (5) Acute hypernatremia Problem: Resolved (6) UTI (urinary tract infection) Problem: Ruled-out
[2019-09-04] MEDS: LEVOFLOXACIN IN DEXTROSE 5 % 500 MG/100 ML BAG IV SCH (10:52)
[2019-09-04] MEDS: ACETAMINOPHEN 500 MG TABLET PO PRN ×2 (13:23→16:35)
[2019-09-04] MEDS: ALBUTEROL SULFATE 2.5 MG/0.5 ML VIAL.NEB IH PRN (14:47)
[2019-09-04] MEDS: IPRATROPIUM BROMIDE 0.5 MG/2.5 ML VIAL.NEB IH PRN (14:47)
[2019-09-04] MEDS: MONTELUKAST SODIUM 10 MG TABLET PO SCH (20:36)
[2019-09-04] MEDS: ROSUVASTATIN CALCIUM 10 MG TABLET PO SCH (20:36)
[2019-09-04] MEDS: MELATONIN 3,000 MCG TABLET PO SCH (20:36)
[2019-09-05] MEDS: PANTOPRAZOLE SODIUM 40 MG TABLET.EC PO SCH (06:48)
[2019-09-05] MEDS: DONEPEZIL HCL 10 MG TABLET PO SCH (08:05)
[2019-09-05] MEDS: CITALOPRAM HYDROBROMIDE 20 MG TABLET PO SCH (08:05)
[2019-09-05] MEDS: MEMANTINE HCL 10 MG TABLET PO SCH (08:06)
[2019-09-05] MEDS: ISOSORBIDE DINITRATE 10 MG TABLET PO SCH (08:06)
[2019-09-05] MEDS: DILTIAZEM HCL 120 MG CAP.SR.24H PO SCH (08:06)
[2019-09-05] MEDS: NYSTATIN 30 APPL TUBE TP SCH (08:07)
[2019-09-05] MEDS: DENTAL ADHESIVE 39 APPL TUBE TP SCH (08:08)
[2019-09-05] MEDS: POLYETHYLENE GLYCOL 3350 17 GM PACKET PO SCH (08:08)
[2019-09-05] MEDS: ENOXAPARIN SODIUM 40 MG/0.4 ML SYRG SC SCH ×2 (08:10→08:32)
[2019-09-05] MEDS: PREGABALIN 50 MG CAPSULE PO SCH ×2 (08:10→12:03)
[2019-09-05] MEDS: traMADol HCL 50 MG TABLET PO PRN (08:54)
[2019-09-05] MEDS: POTASSIUM CHLORIDE 20 MEQ TABLET.SA PO ONE ×2 (10:04→10:09)
[2019-09-05] MEDS: LEVOFLOXACIN IN DEXTROSE 5 % 500 MG/100 ML BAG IV SCH (10:04)
--- NOTE | 2019-09-05 12:24 | DS ---
(1) Pneumonia Problem: Acute Qualifiers: Pneumonia type: due to group B Streptococcus Laterality: right Lung location: unspecified part of lung Qualified Code(s): J15.3 - Pneumonia due to streptococcus, group B (2) Bacteremia Problem: Acute (3) COPD (chronic obstructive pulmonary disease) Problem: Chronic (4) Dementia Problem: Chronic (5) Acute hypernatremia Problem: Resolved (6) UTI (urinary tract infection) Problem: Ruled-out Date of Discharge:: 09/05/19 Description of Stay: Mikaela Ontiveros is an 79-year-old female with a past medical history of COPD, lee ntia, gastritis, hyperlipidemia who was admitted on 08/30/2019 with complaints of shortness of breatheand altered mental status. As per her daughter and son who were at bedside , her symptoms began a few days ago [employer]. She began becoming more confused and unable to do her daily ADLs. Today she was found to have hypoxia with an oxygen saturation of 85%. Her family brought her to the emergency room. In the ER she was found to have leukocytosis of 22,000, anemia with H&H of 8.8/27.5, trace bacteria in the urine, chest x-ray shows right multilobar pneumonia. She was admitted for further event evaluation and management of pneumonia. She was started on IV antibiotics and breathing treatments with O2 supplementation. Her leukocytosis resolved . Her UCS showed no growth but her blood C & S grew Staph Epi in 1/2 of bottles. She was afebrile and clinically was siginificantly better. It is felt that her Staph Epi bacteremia was more of a contaminant than a true bacteremis. She was however changed to IV levaquin per sensitivity since we were going to transition her to oral antibiotics for her pneumonia anyway. She has been working with PT but was felt that she needed to continue more with strengthening exercises with PT in a NH. We will discharge her with Levaquin x 7 more days. Procedures Performed: none Results and Findings: Lab Pending Results 08/30/19 16:50: WBC 22.0 H, RBC 3.13 L, Hgb 8.8 L, Hct 27.5 L, MCV 87.9, MCH 28.1, MCHC 32.0, RDW 16.3 H, Plt Count 227, MPV 10.5, Neutrophils % (Manual) 84 H, Lymphocytes % (Manual) 14 L, Monocytes % (Manual) 2, Neutrophils # (Manual) 18.5 H, Lymphocytes # (Manual) 3.1, Monocytes # (Manual) 0.4, Hypersegmented Polys Trace, Platelet Estimate Normal, Ovalocytes Trace 08/30/19 16:50: Sodium 140, Plasma Sodium 140, Potassium 4.2, Chloride 106, Carbon Dioxide 24.6, Anion Gap 13.6, BUN 21, Creatinine 1.00, Est GFR (Non-Af Amer) 57 L, BUN/Creatinine Ratio 21.0, Random Glucose 111 H, Calcium 8.3, Calcium Adj for Albumin 8.9, Total Bilirubin 0.7, AST 18, ALT 12 L, Alkaline Phosphatase 101, Troponin I Less than 0.017, B-Natriuretic Peptide 819 H, Total Protein 6.5, Albumin 2.9 L 08/30/19 16:50: Lactic Acid, Venous 1.1 08/30/19 17:35: Urine Color Pale yellow, Urine Appearance Clear, Urine pH 6.5, Ur Specific [place] 1.010, Urine Protein Negative, Urine Glucose (UA) Negative, Urine Ketones Negative, Urine Blood Negative, Urine Nitrate Negative, Urine Bilirubin Negative, Urine Urobilinogen Normal, Ur Leukocyte Esterase Negative, Urine RBC None seen, Urine WBC None seen, Ur Epithelial Cells 0-5, Ur Renal Epithelial Cell Trace, Urine Bacteria 1+ H, Urine Culture Comments Culture to follow 08/31/19 05:32: WBC 21.5 H, RBC 3.33 L, Hgb 9.3 L, Hct 29.5 L, MCV 88.6, MCH 27.9, MCHC 31.5 L, RDW 16.2 H, Plt Count 233, MPV 10.6, Immature Gran % (Auto) 1.40 H, Immature Gran # (Auto) 0.31 H, Neutrophils % 87.2 H, Lymphocytes % 8.0 L, Monocytes % 2.9, Eosinophils % 0.3, Basophils % 0.2, Nucleated RBC % 0.0, Neutrophils # 18.8 H, Lymphocytes # 1.71, Monocytes # 0.6, Eosinophils # 0.1, Absolute Basophils 0.0 08/31/19 05:32: Sodium 141, Plasma Sodium 141, Potassium 3.9, Chloride 106, Carbon Dioxide 24.1, Anion Gap 14.8 H, BUN 21, Creatinine 0.90, Est GFR (Non-Af Amer) 64, BUN/Creatinine Ratio 23.3 H, Random Glucose 89, Calcium 8.5, Calcium Adj for Albumin 8.9, Total Bilirubin 0.5, AST 16, ALT 10 L, Alkaline Phosphatase 106, Total Protein 6.9, Albumin 3.1 L 08/31/19 15:35: Stl C.difficile Tox A&B Negative 09/01/19 05:37: WBC 13.1 H D, RBC 3.21 L, Hgb 8.9 L, Hct 28.4 L, MCV 88.5, MCH 27.7, MCHC 31.3 L, RDW 16.0 H, Plt Count 242, MPV 10.8, Immature Gran % (Auto) 0.90 H, Immature Gran # (Auto) 0.12 H, Neutrophils % 79.8 H, Lymphocytes % 14.1 L, Monocytes % 3.5, Eosinophils % 1.5, Basophils % 0.2, Nucleated RBC % 0.0, Neutrophils # 10.5 H, Lymphocytes # 1.85, Monocytes # 0.5, Eosinophils # 0.2, Absolute Basophils 0.0 09/01/19 05:37: Sodium 143 H, Plasma Sodium 143 H, Potassium 3.5, Chloride 107 H, Carbon Dioxide 25.5, Anion Gap 14.0 H, BUN 14, Creatinine 0.86, Est GFR (Non- Af Amer) 67, BUN/Creatinine Ratio 16.3, Random Glucose 99, Calcium 8.7, Calcium Adj for Albumin 9.3, Total Bilirubin 0.3, AST 14, ALT 9 L, Alkaline Phosphatase 109, Total Protein 6.5, Albumin 2.9 L 09/02/19 05:15: WBC 9.2 D, RBC 3.40 L, Hgb 9.4 L, Hct 31.9 L, MCV 93.8, MCH 27.6, MCHC 29.5 L, RDW 16.1 H, Plt Count 247, MPV 10.6, Immature Gran % (Auto) 1.20 H, Immature Gran # (Auto) 0.11 H, Neutrophils % 67.2, Lymphocytes % 22.5, Monocytes % 5.8, Eosinophils % 2.8, Basophils % 0.5, Nucleated RBC % 0.0, Neutrophils # 6.2 H, Lymphocytes # 2.07, Monocytes # 0.5, Eosinophils # 0.3, Absolute Basophils 0.1 09/02/19 05:15: Sodium 143 H, Plasma Sodium 143 H, Potassium 3.4, Chloride 109 H, Carbon Dioxide 24.6, Anion Gap 12.8, BUN 15, Creatinine 0.92, Est GFR (Non-Af Amer) 62, BUN/Creatinine Ratio 16.3, Random Glucose 94, Calcium 8.8, Calcium Adj for Albumin 9.4, Total Bilirubin 0.3, AST 13, ALT 8 L, Alkaline Phosphatase 106, Total Protein 6.6, Albumin 2.9 L 09/03/19 06:00: WBC 8.2, RBC 3.31 L, Hgb 9.1 L, Hct 29.4 L, MCV 88.8, MCH 27.5, MCHC 31.0 L, RDW 15.9 H, Plt Count 244, MPV 10.3, Immature Gran % (Auto) 2.40 H, Immature Gran # (Auto) 0.20 H, Neutrophils % 56.1, Lymphocytes % 29.2, Monocytes % 8.5, Eosinophils % 3.3 H, Basophils % 0.5, Nucleated RBC % 0.0, Neutrophils # 4.6, Lymphocytes # 2.39, Monocytes # 0.7, Eosinophils # 0.3, Absolute Basophils 0.0 09/03/19 06:00: Sodium 141, Plasma Sodium 141, Potassium 3.3 L, Chloride 108 H, Carbon Dioxide 26.9, Anion Gap 9.4, BUN 13, Creatinine 0.82, Est GFR (Non-Af Amer) 71, BUN/Creatinine Ratio 15.9, Random Glucose 82, Calcium 8.1, Calcium Adj for Albumin 8.8, Total Bilirubin 0.3, AST 13, ALT 11 L, Alkaline Phosphatase 90, Total Protein 6.4, Albumin 2.7 L Discharge Location: [facility] Disposition: SNF Condition: Stable Level of Care: SNF Discharge Activity: Activity as tolerated Discharge Diet: General/regular food Assisted Therapy: Physical Therapy, Occupation Therapy Additional Patient Instructions (free text): Resume services with [facility]. Please call report and fax orders upon discharge. -Please make TCM appointment unless fpc discharge, or if following up with outside provider. Thank you! Amber @ [phone] or Lisa at [phone]. Prescriptions (Any new or edited meds): Levofloxacin [Levaquin] 500 mg PO DAILY #7 tab Complete Home Medications List: Complete Home Medication List: Acetaminophen [Tylenol] 500 mg PO Q3H PRN 08/30/19 Albuterol Sulfate [Proair Respiclick] 90 mcg INHALATION BID PRN 08/30/19 Albuterol Sulfate/Ipratropium [Duoneb 2.5-0.5MG/3ML Soln] 3 ml INHALATION QID 08/30/19 Aspirin 81 mg PO DAILY 08/30/19 Atorvastatin Calcium 10 mg PO DAILY 08/30/19 Celecoxib 200 mg PO DAILY 08/30/19 Citalopram Hydrobromide [Celexa] 40 mg PO DAILY 08/30/19 Diltiazem HCl [Diltiazem 12Hr ER] 120 mg PO DAILY 08/30/19 Donepezil HCl 10 mg PO DAILY 08/30/19 Esomeprazole Magnesium 40 mg PO DAILY 08/30/19 Fluticasone Propion/Salmeterol [Advair 500-50 Diskus] 2 puff INHALATION BID 08/30/19 Ipratropium [place] [Atrovent] 0.5 mg INHALATION PRN PRN 08/30/19 Isosorbide Dinitrate 30 mg PO DAILY 08/30/19 Meclizine HCl 25 mg PO TID 08/30/19 Melatonin 5 mg PO HS 08/30/19 Memantine HCl 5 mg PO DAILY 08/30/19 Montelukast Sodium [Singulair] 10 mg PO HS 08/30/19 Nystatin 15 gm TOPICAL DAILY 08/30/19 Polyethylene Glycol 3350 [Gavilax] 17 gm PO DAILY 08/30/19 Pregabalin [Lyrica] 50 mg PO TID 08/30/19 guaiFENesin [Mucus ER] 600 mg PO BID PRN 08/30/19 traMADol HCL [Tramadol HCl] 50 mg PO Q6H PRN 08/30/19 Fluticasone Propionate [Flonase] 1 spray NS DAILY 09/01/19 Levofloxacin [Levaquin] 500 mg PO DAILY #7 tab 09/05/19
[2019-09-05 14:44] VITALS: BP 146/52
== END 2019-09-05 14:40 | DRG 194 ==
LOC: ER 15:49 → MS 15:49
PROVIDERS: ADMIT Internal Medicine; ATTEND Internal Medicine
DX: Z23 Encounter for immunization; N39.0 Urinary tract infection, site not specified; R41.0 Disorientation, unspecified; E87.0 Hyperosmolality and hypernatremia; B95.7 Other staphylococcus as the cause of diseases classified elsewhere; E86.0 Dehydration; J15.3 Pneumonia due to streptococcus, group B; R09.02 Hypoxemia; F03.90 Unspecified dementia, unspecified severity, without behavioral disturbance, psychotic disturbance, mood disturbance, and anxiety; R78.81 Bacteremia
CPT/HCPCS: 36415; 71010; 71045; 80053; 81001; 83519; 83605; 83880; 84484; 85025; 87040; 87086; 87493; 90686; 93005; 94640; 94664; 96365; 97110; 97116; 97161; 97530; 99285; G0378

== ENCOUNTER 2019-12-27 13:53 | Inpatient (IN) ==
--- NOTE | 2019-12-27 14:19 | ERNOTE ---
Date of Service: 12/27/19 Time Seen by Provider: 12/27/19 14:18 Stated Complaint: not feeling well Presenting Symptoms:: cough Source: patient, family Exam Limitations: dementia Immunizations: IMMUNIZATION HX Immunizations Up to Date Yes History of Influenza Vaccine Yes Hx Pneumococcal Vaccination Yes Allergies/Adverse Reactions: Allergies metronidazole [From Flagyl] Allergy (Verified 12/27/19 14:08) Sulfa (Sulfonamide Antibiotics) Allergy (Verified 12/27/19 14:08) Home Medications: HOME MEDICATIONS Acetaminophen [Tylenol] 500 mg PO Q3H PRN 08/30/19 [Last Taken Unknown] Albuterol Sulfate [Proair Respiclick] 90 mcg INHALATION BID PRN 08/30/19 [Last Taken Unknown] Albuterol Sulfate/Ipratropium [Duoneb 2.5-0.5MG/3ML Soln] 3 ml INHALATION QID 08/30/19 [Last Taken Unknown] Aspirin 81 mg PO DAILY 08/30/19 [Last Taken Unknown] Atorvastatin Calcium 10 mg PO DAILY 08/30/19 [Last Taken Unknown] Celecoxib 200 mg PO DAILY 08/30/19 [Last Taken Unknown] Citalopram Hydrobromide [Celexa] 40 mg PO DAILY 08/30/19 [Last Taken Unknown] Diltiazem HCl [Diltiazem 12Hr ER] 120 mg PO DAILY 08/30/19 [Last Taken Unknown] Donepezil HCl 10 mg PO DAILY 08/30/19 [Last Taken Unknown] Esomeprazole Magnesium 40 mg PO DAILY 08/30/19 [Last Taken Unknown] Fluticasone Propion/Salmeterol [Advair 500-50 Diskus] 2 puff INHALATION BID 08/30/19 [Last Taken Unknown] Ipratropium [place] [Atrovent] 0.5 mg INHALATION PRN PRN 08/30/19 [Last Taken Unknown] Isosorbide Dinitrate 30 mg PO DAILY 08/30/19 [Last Taken Unknown] Meclizine HCl 25 mg PO TID 08/30/19 [Last Taken Unknown] Melatonin 5 mg PO HS 08/30/19 [Last Taken Unknown] Memantine HCl 5 mg PO DAILY 08/30/19 [Last Taken Unknown] Montelukast Sodium [Singulair] 10 mg PO HS 08/30/19 [Last Taken Unknown] Nystatin 15 gm TOPICAL DAILY 08/30/19 [Last Taken Unknown] Polyethylene Glycol 3350 [Gavilax] 17 gm PO DAILY 08/30/19 [Last Taken Unknown] Pregabalin [Lyrica] 50 mg PO TID 08/30/19 [Last Taken Unknown] guaiFENesin [Mucus ER] 600 mg PO BID PRN 08/30/19 [Last Taken Unknown] traMADol HCL [Tramadol HCl] 50 mg PO Q6H PRN 08/30/19 [Last Taken Unknown] Fluticasone Propionate [Flonase] 1 spray NS DAILY 09/01/19 [Last Taken Unknown] - Pain Score Pain Score #1 Pain Score: 0 - History of Present Ilness Narrative: The patient is a 79 year old female who presents with daughter for dys pnea which has been present for 1 week with worsening symptoms this am. There are associated symptoms of increased confusion, weakness and wheezing. The patient denies pain. There are no alleviating factors. There are aggravating factors of activity. Previous treatments have included: Duoneb without improvement. The past medical history includes: HLD, alzheimers, COPD, neuropathy and osteoarthritis. The social history is positive for former smoker. The patient has had no konwn ill contacts. Daughter states that during the course of the week patient has had increased dyspnea and audible wheezing. Daughter states that yesterday but was slower during activity but today was increasingly weak and unable to ambulate even to the restroom. Review of Systems - Review of Systems Constitutional: Present: fatigue. Absent: fever EYE: Present: no symptoms reported ENT: Present: no symptoms reported. Absent: ear pain, nasal drainage, sore throat Respiratory: Present: shortness of breath, cough Cardiology: Present: no symptoms reported. Absent: chest pain Gastrointestinal/Abdominal: Present: no symptoms reported. Absent: nausea, vomiting, diarrhea, abdominal pain Genitourinary: Present: no symptoms reported. Absent: dysuria, decreased urinary output Musculoskeletal: Present: no symptoms reported Skin: Present: no symptoms reported. Absent: rash Neurological: Present: weakness All Other Systems: All systems neg except as marked Medical History (Last Reviewed 12/27/19 @ 14:38 by KARISSA Judd) Family history of Alzheimer's disease History of COPD History of dementia History of neuropathy Hx of gastritis Hx of hiatal hernia Hx of hyperlipidemia Osteoarthritis Surgical History: Surgical History (Last Reviewed 12/27/19 @ 14:38 by KARISSA Judd) Hx of cholecystectomy Hx of hysterectomy Family History: Family History (Last Reviewed 12/27/19 @ 14:38 by KARISSA Judd) Other No pertinent family history Social History: (Last Reviewed 12/27/19 @ 14:38 by KARISSA Judd) Social History: lives independently: Yes lives independently comment: w/ boyfriend household members: significant other Tobacco: Smoking Status: Former smoker Alcohol: alcohol intake: never Substance Use: substance use type: does not use Physical Exam - Physical Exam General Appearance: Present: wd/wn, alert, mild distress Head Exam: Present: normal inspection Eye Exam: Normal inspection: bilateral Neck: Present: normal inspection Respiratory: Present: respiratory distress - mild, accessory muscle use, decreased breath sounds Cardiovascular/Chest: Present: regular rate, rhythm - tachycardia, no murmur Gastrointestinal/Abdominal: Present: normal bowel sounds, nontender, nondistended, soft, no organomegaly Extremity Exam: Present: no edema Neurological Exam: Present: alert, oriented, normal mood/affect, no motor/sensory deficits. Absent: disoriented to person, disoriented to time, disoriented to situation Skin Exam: Present: normal color, warm/dry Progress - Date and Time Seen: Date and Time: 12/27/19 15:59 Case reviewed with , will admit observation for pneumonia, weakness and dementia. Will initiate treatment with Rocephin, azithromycin after discussion Carlo requests to withhold steroids at this time. 12/27/19 16:05 Reviewed results and plan of care with daughter. Instructed on antibiotic treatment plan of patient as well as continued monitoring and treatments. Denies questions or concerns, verbalized understanding. - Results and Orders Patient's Lab Results:: I have reviewed the patient's lab results. Results and Orders: Laboratory Tests 12/27/19 12/27/19 12/27/19 14:30 14:30 14:30 WBC 20.6 H Hgb 9.5 L Plt Count 283 Neutrophils % 88.7 H Sodium 137 Potassium 4.3 D Anion Gap 11.7 Creatinine 1.05 Est GFR (Non-Af Amer) 54 L D Lactic Acid, Venous 1.6 Troponin I Less than 0.017 B-Natriuretic Peptide 144 - Vital Signs Patient's Vital Signs:: I have reviewed the patient's vital signs. Vital Signs: Vital Signs 12/27/19 14:10 Temperature 37.0 C Pulse Rate 106 H Respiratory Rate 16 Blood Pressure 113/53 O2 Sat by Pulse Oximetry 91 L - EKG EKG #1 EKG: NSR - tachycardia, nonspecific ST T wave changes EKG read: Reviewed by me - X-Ray X-Ray #1 X-Ray: chest Interpretation: Reviewed by me X-ray Comments: IMPRESSION: RIGHT LOWER LOBE CONSOLIDATION ATELECTASIS VERSUS DEVELOPING INFILTRATE. MILD CARDIOMEGALY. Electronically signed by Jai Cho M.D.. - Progress/Reassessment Chief Complaint: Cough Departure Clinical Impression: Weakness Pneumonia Qualifiers: Pneumonia type: due to unspecified organism Laterality: right Lung location: lower lobe of lung Qualified Code(s): J18.9 - Pneumonia, unspecified organism Dementia Qualifiers: Dementia type: unspecified type Dementia behavioral disturbance: with behavioral disturbance Qualified Code(s): F03.91 - Unspecified dementia with behavioral disturbance - Departure Disposition: Still a patient Condition: Fair
[2019-12-27] MEDS ORDERED: ALBUTEROL SULFATE/IPRATROPIUM 3 ML NEBU IH ONE (14:26)
[2019-12-27 15:05] LABS: Hematocrit 30.8 % (37.0-47.0); Hemoglobin 9.5 gm/dL (12.5-16.0); Mean Cell Volume 86.8 fl (78-100); Mean Corpuscular Hemoglobin 26.8 pg (27-31); Mean Corpuscular Hgb Conc 30.8 g/dl (32-36); Mean Platelet Volume 10.9 fl (8-12.5); Neutrophil # 18.2 K/mm3 (1.3-6.0); Neutrophil % 88.7 % (42-75.0); Platelet Count 283 K/mm3 (150-450); Red Blood Count 3.55 M/mm3 (4.2-5.4); Red Cell Distribution Width 18.1 % (11.5-14.0); White Blood Count 20.6 K/mm3 (4.0-10.5)
[2019-12-27 15:21] LABS: ALT 12 U/L (19-67); AST 16 U/L (0-48); Albumin * 3.4 gm/dl (3.4-5.0); Alkaline Phosphatase * 103 U/L (50-170); Anion Gap 11.7 mmol/L (6.8-13.8); BNP * 144 pg/mL (5-550); BUN/Creatinine Ratio 26.7 (9.0-21.6); Bilirubin, Total 0.3 mg/dL (0.0-1.1); Blood Urea Nitrogen 28 mg/dL (3-23); Ca. Corrected For Albumin 8.8 mg/dL (8.4-10.2); Calcium * 8.6 mg/dL (7.9-10.9); Carbon Dioxide 24.6 mmol/L (24-32.6); Chloride 105 mmol/L (97-106); Glucose * 98 mg/dL (70-110); Potassium 4.3 mmol/L (3.4-4.6); Sodium 137 mmol/L (132-142); Troponin I Less than 0.017 ng/mL (0.00-0.10)
[2019-12-27] MEDS ORDERED: AZITHROMYCIN 250 MG TABLET PO ONE (16:02)
[2019-12-27] MEDS ORDERED: cefTRIAXone SODIUM 1,000 MG/100 ML BAG IV ONE (16:02)
[2019-12-27 16:17] LABS: Urine Bilirubin Negative (NEGATIVE); Urine Color Yellow
[2019-12-27 16:18] LABS: Urine Blood Negative /ul (NEGATIVE); Urine Ketone Negative (NEGATIVE); Urine Nitrite Negative (NEGATIVE); Urine Protein Negative (NEGATIVE); Urine Urobilinogen Normal (NORMAL)
[2019-12-27 16:31] LABS: Urine WBC 0-5 /hpf (0-5)
[2019-12-27 16:32] LABS: Urine Bacteria None Seen; Urine RBC None Seen /hpf (0-5)
[2019-12-27 16:33] LABS: Urine Appearance Clear (CLEAR)
[2019-12-27] MEDS ORDERED: ALBUTEROL SULFATE/IPRATROPIUM 3 ML NEBU IH SCH (19:00)
[2019-12-27] MEDS ORDERED: IPRATROPIUM BROMIDE 0.5 MG/2.5 ML VIAL.NEB IH PRN (20:08)
--- NOTE | 2019-12-27 20:36 | HP ---
Chief Complaint - Chief Complaint Date of Service: 12/27/19 Time of Service: 19:45 Chief Complaint: Weakness, altered mental status, fever, cough History of Present Illness: Mikaela Ontiveros is an 79-year-old female who still lives at home and cared for by her daughter. She became ill about a week ago and has had increasing confusion and increasing muscle weakness since then. It became severe enough today that she could not stand to walk to the bathroom and was brought to the hospital for evaluation. The ER testing demonstrated a right lower lobe infiltrate. She was given some IV fluids, respiratory therapy treatments, and started on Rocephin and azithromycin in the emergency room. She is then admitted to observation status for continued treatment of her pneumonia. Her oxygen saturations have been in the 90s 92% range on room air. Laboratory work shows a white count of 20,000 with a left shift. Although wheezing in the emergency room she is received several breathing treatments and on my exam there are only scattered wheezes that are faint. There are some diminished breath sounds in the right lower lobe consistent with her pneumonia. She is in no distress at the time of my exam this evening. She is alert and conversant and answers questions appropriately. Medical History (Last Updated 12/27/19 @ 17:13 by Nancy Larsen RN) GERD (gastroesophageal reflux disease) Myocardial infarction Family history of Alzheimer's disease History of COPD History of dementia History of neuropathy Hx of gastritis Hx of hiatal hernia Hx of hyperlipidemia Osteoarthritis Surgical History: Surgical History (Last Reviewed 12/27/19 @ 17:12 by Nancy Larsen RN) Hx of cholecystectomy Hx of hysterectomy Family History: Family History (Last Reviewed 12/27/19 @ 17:13 by Nancy Larsen RN) Other No pertinent family history Social History: (Last Reviewed 12/27/19 @ 17:13 by Nancy Larsen RN) Social History: lives independently: Yes lives independently comment: w/ boyfriend household members: significant other Tobacco: Smoking Status: Former smoker Alcohol: alcohol intake: never Substance Use: substance use type: does not use Review Of Systems (GEN) - Review of Systems Generalized/Overall Review: Present: Weakness EENTM: Present: No Symptoms Reported Respiratory: Present: Cough, Shortness of Breath, Wheezing Cardiac: Present: No Symptoms Reported Abdominal: Present: No Symptoms Reported, Other - Decreased appetite Genitourinary: Present: Oliguria Musculoskeletal: Present: Other - Diffuse muscle weakness Neurological: Present: Weakness, Other - Altered (decreased) mental status Skin: Present: No Symptoms Reported Endocrine: Present: No Symptoms Reported, Excessive Sweating Immunizations: IMMUNIZATION HX Immunizations Up to Date Yes History of Influenza Vaccine Yes Hx Pneumococcal Vaccination Yes Allergies/Adverse Reactions: Allergies Allergy/AdvReac Type Severity Reaction Status Date / Time metronidazole [From Flagyl] Allergy Verified 12/27/19 14:08 Sulfa (Sulfonamide Allergy Verified 12/27/19 14:08 Antibiotics) Home Medications: HOME MEDICATIONS Acetaminophen [Tylenol] 500 mg PO Q3H PRN 08/30/19 [Last Taken Unknown] Albuterol Sulfate [Proair Respiclick] 90 mcg INHALATION BID PRN 08/30/19 [Last Taken Unknown] Albuterol Sulfate/Ipratropium [Duoneb 2.5-0.5MG/3ML Soln] 3 ml INHALATION QID 08/30/19 [Last Taken Unknown] Aspirin 81 mg PO DAILY 08/30/19 [Last Taken Unknown] Atorvastatin Calcium 10 mg PO DAILY 08/30/19 [Last Taken Unknown] Celecoxib 200 mg PO DAILY 08/30/19 [Last Taken Unknown] Diltiazem HCl [Diltiazem 12Hr ER] 120 mg PO DAILY 08/30/19 [Last Taken Unknown] Donepezil HCl 10 mg PO HS 08/30/19 [Last Taken Unknown] Esomeprazole Magnesium 40 mg PO DAILY 08/30/19 [Last Taken Unknown] Fluticasone Propion/Salmeterol [Advair 500-50 Diskus] 2 puff INHALATION BID 08/30/19 [Last Taken Unknown] Ipratropium [place] [Atrovent] 0.5 mg INHALATION QID PRN 08/30/19 [Last Taken Unknown] Isosorbide Dinitrate 30 mg PO DAILY 08/30/19 [Last Taken Unknown] Meclizine HCl 25 mg PO TID 08/30/19 [Last Taken Unknown] Melatonin 5 mg PO HS 08/30/19 [Last Taken Unknown] Memantine HCl 5 mg PO DAILY 08/30/19 [Last Taken Unknown] Montelukast Sodium [Singulair] 10 mg PO HS 08/30/19 [Last Taken Unknown] Nystatin 15 gm TOPICAL DAILY 08/30/19 [Last Taken Unknown] Polyethylene Glycol 3350 [Gavilax] 17 gm PO DAILY 08/30/19 [Last Taken Unknown] Pregabalin [Lyrica] 50 mg PO TID 08/30/19 [Last Taken Unknown] guaiFENesin [Mucus ER] 600 mg PO BID PRN 08/30/19 [Last Taken Unknown] traMADol HCL [Tramadol HCl] 50 mg PO Q6H PRN 08/30/19 [Last Taken Unknown] Fluticasone Propionate [Flonase] 2 spray NS DAILY 09/01/19 [Last Taken Unknown] Mag Hydrox/Aluminum Hyd/Simeth [[place] Liquid] 15 ml PO QID PRN 12/27/19 [Last Taken Unknown] Phenyleph/Mineral Oil/Petrolat [Preparation H Ointment] 1 appl RC QID PRN 12/27/19 [Last Taken Unknown] Exam - Exam Vital Signs: Vital Signs - Last Taken Temp 36.9 C 12/27/19 19:00 Pulse 87 12/27/19 19:00 Resp 20 12/27/19 19:00 BP 97/42 12/27/19 19:00 Pulse Ox 93 12/27/19 19:00 Constitutional: Present: Alert, Cooperative, Well developed, Well nourished, No distress, Elderly, Obese ENT Exam: Present: normal ENT inspection, hearing grossly normal, pharynx normal, TMs normal Eye Exam: bilateral eye: normal inspection, PERRL, EOMI Neck: Present: non-tender, supple, normal inspection, trachea midline, limited range of motion Back Exam: Present: normal inspection, no CVA tenderness, no vertebral tenderness Breasts: Present: Exam deferred Respiratory: Present: chest non-tender, decreased breath sounds - In the right lower lobe, wheezing - Faint and scattered. Worse in the right lung. The left is nearly clear, expiration (prolonged) Cardiovascular/Chest: Present: normal peripheral pulses, regular rate, rhythm, no chest tenderness, no edema, no gallop, no JVD, no murmur, no rub Peripheral Pulses: carotid (R): 2+, carotid (L): 2+, radial (R): 2+, radial (L): 2+ Abdomen: Present: Normal bowel sounds, soft, nontender, nondistended, no rebound tenderness, no hepatospenomegaly, no masses, obese /Rectal: Present: Exam deferred Extremity: Present: normal range of motion, non-tender, normal inspection, no pedal edema, no calf tenderness, normal capillary refill Skin Exam: Present: normal color, warm/dry, no cyanosis, cool/dry Lymphatic: Present: no adenopathy Neurologic: Present: cloth packer II-XII nml as tested, normal cerebellar test, no motor/sensory deficits, alert, normal mood/affect, oriented x 3 Appearance: Present: appropriate appearance, neat, impaired recent memory. Absent: appropriate insight Eye contact: Present: cooperative, good eye contact, normal speech, avoids eye contact Thoughts: Present: no apparent hallucination, normal mood /affect. Absent: delusions Diagnostic Studies: Abnormal Lab Results 12/27/19 12/27/19 Range/Units 14:30 14:30 WBC 20.6 H (4.0-10.5) K/mm3 RBC 3.55 L (4.2-5.4) M/mm3 Hgb 9.5 L (12.5-16.0) gm/dL Hct 30.8 L (37.0-47.0) % MCH 26.8 L (27-31) pg MCHC 30.8 L (32-36) g/dl RDW 18.1 H (11.5-14.0) % Immature Gran % (Auto) 1.00 H (0.001-0.429) % Immature Gran # (Auto) 0.20 H (0.000-0.0310) K/mm3 Neutrophils % 88.7 H (42-75.0) % Lymphocytes % 4.8 L (20-51) % Neutrophils # 18.2 H (1.3-6.0) K/mm3 Lymphocytes # 0.98 L (1.5-3.5) k/mm3 BUN 28 H D (3-23) mg/dL Est GFR (Non-Af Amer) 54 L D (60-130) mL/min BUN/Creatinine Ratio 26.7 H (9.0-21.6) ALT 12 L (19-67) U/L Laboratory Results WBC 20.6 K/mm3 (4.0-10.5) H 12/27/19 14:30 RBC 3.55 M/mm3 (4.2-5.4) L 12/27/19 14:30 Hgb 9.5 gm/dL (12.5-16.0) L 12/27/19 14: Hct 30.8 % (37.0-47.0) L 12/27/19 14:30 MCV 86.8 fl (78-100) 12/27/19 14:30 MCH 26.8 pg (27-31) L 12/27/19 14: MCHC 30.8 g/dl (32-36) L 12/27/19 14: RDW 18.1 % (11.5-14.0) H 12/27/19 14:30 Plt Count 283 K/mm3 (150-450) 12/27/19 14: MPV 10.9 fl (8-12.5) 12/27/19 14: Immature Gran % (Auto) 1.00 % (0.001-0.429) H 12/27/19 14: Immature Gran # (Auto) 0.20 K/mm3 (0.000-0.0310) H 12/27/19 14:30 Neutrophils % 88.7 % (42-75.0) H 12/27/19 14:30 Lymphocytes % 4.8 % (20-51) L 12/27/19 14:30 Monocytes % 5.1 % (0.0-9) 12/27/19 14: Eosinophils % 0.2 % (0.0-3.0) 12/27/19 14: Basophils % 0.2 % (0.0-1.0) 12/27/19 14: Nucleated RBC % 0.0 k/mm3 (0-1) 12/27/19 14:30 Neutrophils # 18.2 K/mm3 (1.3-6.0) H 12/27/19 14: Lymphocytes # 0.98 k/mm3 (1.5-3.5) L 12/27/19 14: Monocytes # 1.0 k/mm3 (0.0-1.0) 12/27/19 14: Eosinophils # 0.1 k/mm3 (0.0-0.7) 12/27/19 14: Absolute Basophils 0.0 k/mm3 (0.0-0.1) 12/27/19 14:30 Sodium 137 mmol/L (132-142) 12/27/19 14:30 Plasma Sodium 137 mmol/L (130-142) 12/27/19 14:30 Potassium 4.3 mmol/L (3.4-4.6) D 12/27/19 14:30 Chloride 105 mmol/L (97-106) 12/27/19 14:30 Carbon Dioxide 24.6 mmol/L (24-32.6) 12/27/19 14:30 Anion Gap 11.7 mmol/L (6.8-13.8) 12/27/19 14:30 BUN 28 mg/dL (3-23) H D 12/27/19 14:30 Creatinine 1.05 mg/dL (0.4-1.4) 12/27/19 14:30 Est GFR (Non-Af Amer) 54 mL/min (60-130) L D 12/27/19 14:30 BUN/Creatinine Ratio 26.7 (9.0-21.6) H 12/27/19 14:30 Random Glucose 98 mg/dL (70-110) 12/27/19 14:30 Lactic Acid, Venous 1.6 mmol/L (0.4-2.0) 12/27/19 14:30 Calcium 8.6 mg/dL (7.9-10.9) 12/27/19 14:30 Calcium Adj for Albumin 8.8 mg/dL (8.4-10.2) 12/27/19 14:30 Total Bilirubin 0.3 mg/dL (0.0-1.1) 12/27/19 14:30 AST 16 U/L (0-48) 12/27/19 14:30 ALT 12 U/L (19-67) L 12/27/19 14:30 Alkaline Phosphatase 103 U/L (50-170) 12/27/19 14:30 Troponin I Less than 0.017 ng/mL (0.00-0.10) 12/27/19 14:30 B-Natriuretic Peptide 144 pg/mL (5-550) 12/27/19 14:30 Total Protein 7.0 gm/dL (6.2-8.2) 12/27/19 14:30 Albumin 3.4 gm/dl (3.4-5.0) 12/27/19 14:30 Urine Color Yellow 12/27/19 16:11 Urine Appearance Clear (CLEAR) 12/27/19 16:11 Urine pH 6.0 pH (5.0-7.0) 12/27/19 16:11 Ur Specific [place] 1.030 SP.GR. (1.005-1.010) 12/27/19 16:11 Urine Protein Negative mg/dL (NEGATIVE) 12/27/19 16:11 Urine Glucose (UA) Negative mg/dL (NEGATIVE) 12/27/19 16:11 Urine Ketones Negative mg/dL (NEGATIVE) 12/27/19 16:11 Urine Blood Negative /ul (NEGATIVE) 12/27/19 16:11 Urine Nitrate Negative (NEGATIVE) 12/27/19 16:11 Urine Bilirubin Negative mg/dl (NEGATIVE) 12/27/19 16:11 Urine Urobilinogen Normal EU/dl (NORMAL) 12/27/19 16:11 Ur Leukocyte Esterase Negative /ul (NEGATIVE) 12/27/19 16:11 Urine RBC None seen /hpf (0-5) 12/27/19 16:11 Urine WBC 0-5 /hpf (0-5) 12/27/19 16:11 Ur Epithelial Cells 0-5 /hpf (0-5) 12/27/19 16:11 Urine Bacteria None seen (NONE) 12/27/19 16:11 Urine Culture Comments No culture indicated 12/27/19 16:11 Influenza Type A Ag Negative (NEGATIVE) 12/27/19 14:30 Influenza Type B Ag Negative (NEGATIVE) 12/27/19 14:30 Assessment/Plan - Narrative Narrative: She is admitted for pneumonia. She will receive respiratory therapy treatments, IV Rocephin and p.o. azithromycin. I have held some of her medicines until she is eating better. I will have physical therapy evaluate her for mobility and skills for independent living. I will progress her activity as she tolerates. - Assessment/Plan (1) Pneumonia Problem: Acute Qualifiers: Pneumonia type: due to unspecified organism Laterality: right Lung location: lower lobe of lung Qualified Code(s): J18.9 - Pneumonia, unspecified organism (2) Altered mental status Problem: Acute Qualifiers: Altered mental status type: somnolence Qualified Code(s): R40.0 - Somnolence (3) Anemia Problem: Chronic Qualifiers: Anemia type: iron deficiency Iron deficiency anemia type: unspecified iron deficiency Qualified Code(s): D50.9 - Iron deficiency anemia, unspecified (4) Weakness Problem: Acute (5) Dementia Problem: Chronic Qualifiers: Dementia type: Alzheimer's disease Dementia behavioral disturbance: with behavioral disturbance Qualified Code(s): F03.91 - Unspecified dementia with behavioral disturbance (6) Confusion Problem: Acute (7) COPD (chronic obstructive pulmonary disease) Problem: Chronic Qualifiers: COPD type: emphysema Emphysema type: panlobular Qualified Code(s): J43.1 - Panlobular emphysema
[2019-12-27] MEDS ORDERED: MELATONIN 5 MG PO SCH (21:00)
[2019-12-27] MEDS ORDERED: FLUTICASONE PROPION/SALMETEROL 14 PUFF DISK.W.DEV IH SCH (21:00)
[2019-12-27] MEDS: traMADol HCL 50 MG TABLET PO PRN (21:34)
[2019-12-27] MEDS: ENOXAPARIN SODIUM 40 MG/0.4 ML SYRG SC SCH (21:34)
[2019-12-27] MEDS: DONEPEZIL HCL 10 MG TABLET PO SCH (21:35)
[2019-12-27] MEDS: MONTELUKAST SODIUM 10 MG TABLET PO SCH (21:35)
[2019-12-27] MEDS: ALBUTEROL SULFATE/IPRATROPIUM 3 ML NEBU IH SCH (21:41)
[2019-12-27] MEDS ORDERED: MAG HYDROX/ALUMINUM HYD/SIMETH 30 ML UDC PO PRN (21:45)
[2019-12-28] MEDS: DENTAL ADHESIVE 39 APPL TUBE TP SCH ×2 (04:16→09:24)
[2019-12-28] MEDS: ALBUTEROL SULFATE/IPRATROPIUM 3 ML NEBU IH SCH ×4 (06:17→18:06)
[2019-12-28 06:33] LABS: Hematocrit 27.9 % (37.0-47.0); Hemoglobin 8.8 gm/dL (12.5-16.0); Mean Cell Volume 85.8 fl (78-100); Mean Corpuscular Hemoglobin 27.1 pg (27-31); Mean Corpuscular Hgb Conc 31.5 g/dl (32-36); Mean Platelet Volume 11.2 fl (8-12.5); Neutrophil # 18.3 K/mm3 (1.3-6.0); Neutrophil % 83.2 % (42-75.0); Platelet Count 254 K/mm3 (150-450); Red Blood Count 3.25 M/mm3 (4.2-5.4)
[2019-12-28 06:47] LABS: Anion Gap 12.6 mmol/L (6.8-13.8); BUN/Creatinine Ratio 26.1 (9.0-21.6); Bilirubin, Total 0.4 mg/dL (0.0-1.1); Ca. Corrected For Albumin 9.3 mg/dL (8.4-10.2); Calcium * 8.8 mg/dL (7.9-10.9); Carbon Dioxide 25.4 mmol/L (24-32.6); Total Protein 6.4 gm/dL (6.2-8.2)
[2019-12-28] MEDS: PANTOPRAZOLE SODIUM 40 MG TABLET.EC PO SCH (06:48)
[2019-12-28] MEDS: ASPIRIN 81 MG TAB.CHEW PO SCH (09:24)
[2019-12-28] MEDS: ISOSORBIDE DINITRATE 10 MG TABLET PO SCH (09:24)
[2019-12-28] MEDS: FLUTICASONE PROPION/SALMETEROL 14 PUFF DISK.W.DEV IH SCH ×2 (09:25→20:53)
[2019-12-28] MEDS: MEMANTINE HCL 10 MG TABLET PO SCH (09:25)
[2019-12-28] MEDS: traMADol HCL 50 MG TABLET PO PRN ×2 (11:01→17:16)
[2019-12-28] MEDS: ACETAMINOPHEN 500 MG TABLET PO PRN ×2 (15:09→18:51)
--- NOTE | 2019-12-28 18:26 | PN ---
Subjective - Date and Time Seen Date: 12/28/19 Time: 09:45 Subjective Narrative: Mikaela has had an uneventful night. She is insistent about going home this morning. However, the chest x-ray demonstrates a total consolidation of the right lower lobe. The CT scan done this morning reveals multi lobular pneumonia but no tumor. The white count has increased from 20,000 yesterday to 22,000 today and both have strong left shift in the differential. Urinalysis was nor mal. Chemistries are okay. She does not appear to be in any respiratory distress. She is coughing some but it is nonproductive. She refused to let physical therapy get her up and walk. She states she has been too weak and could not stand and is afraid to try. When I told her that she would need to stay longer she became insistent about being discharged. I left the room and then came back after the CT results were available and her daughter was there. Her daughter is an RN and I went over her x-ray and chart with her so she understands. She wants her mother to get up and get moving and I agreed with that. Her oxygen saturation levels are normal and vital signs have been stable. There is no evidence of sepsis. Objective - Review of Systems Generalized/Overall Review: Reports: Weakness, Fever, Malaise EENTM: Reports: No Symptoms Reported Respiratory: Reports: Cough, Shortness of Breath Cardiac: Reports: No Symptoms Reported Abdominal: Reports: No Symptoms Reported Genitourinary Symptoms: Reports: Incontinent, Polyuria Musculoskeletal Complaints: Reports: No Symptoms Reported Neurological: Reports: Weakness Skin: Reports: No Symptoms Reported - Vitals Vitals: Last Vital Signs Temp 36.9 C 12/28/19 17:58 Pulse 77 12/28/19 18:06 Resp 17 12/28/19 18:06 BP 148/56 12/28/19 17:58 Pulse Ox 93 12/28/19 18:06 - Abnormal Lab Findings Abnormal Lab Findings: Abnormal Lab Results 12/28/19 12/28/19 Range/Units 06:16 06:16 WBC 22.0 H (4.0-10.5) K/mm3 RBC 3.25 L (4.2-5.4) M/mm3 Hgb 8.8 L (12.5-16.0) gm/dL Hct 27.9 L (37.0-47.0) % MCHC 31.5 L (32-36) g/dl RDW 18.0 H (11.5-14.0) % Immature Gran % (Auto) 0.50 H (0.001-0.429) % Immature Gran # (Auto) 0.10 H (0.000-0.0310) K/mm3 Neutrophils % 83.2 H (42-75.0) % Lymphocytes % 12.6 L (20-51) % Neutrophils # 18.3 H (1.3-6.0) K/mm3 BUN 24 H (3-23) mg/dL BUN/Creatinine Ratio 26.1 H (9.0-21.6) ALT 8 L (19-67) U/L Albumin 3.0 L (3.4-5.0) gm/dl - EKG/Xray Findings EKG read: Reviewed by me XRAY: chest Interpretation: Reviewed by me - Exam Constitutional: Present: Alert, Oriented x3, Cooperative, Well developed, Well nourished, No distress, Lethargic, Elderly ENT Exam: Present: normal ENT inspection, hearing grossly normal, pharynx normal, TMs normal Neck: Present: non-tender, full range of motion, supple, normal inspection Breasts: Present: Exam deferred Respiratory: Present: no respiratory distress, no accessory muscle use, decreased breath sounds, crackles, rhonchi, wheezing, expiration (prolonged) Cardiovascular/Chest: Present: normal peripheral pulses, regular rate, rhythm, no chest tenderness, no edema, no gallop, no JVD, no murmur, no rub Abdomen: Present: Normal bowel sounds, soft, nontender, nondistended, no rebound tenderness, no hepatospenomegaly, no masses /Rectal: Present: Exam deferred Extremity: Present: normal range of motion, non-tender, normal inspection, no pedal edema, no calf tenderness, normal capillary refill Skin Exam: Present: warm/dry, pallor Lymphatic: Present: no adenopathy Neurologic: Present: wash driller helper II-XII nml as tested, normal cerebellar test, no motor/sensory deficits, alert, normal mood/affect, oriented x 3, motor weakness - Generalized Appearance: Present: appropriate appearance, appropriate insight, neat Eye contact: Present: cooperative, good eye contact, normal speech Thoughts: Present: other - Some confusion Assessment/Plan Plan Narrative: Admit to [facility] as a regular admission Continue respiratory therapy Continue IV antibiotics Progress activity as patient allows Repeat CBC and BMP tomorrow morning - Problems/Diagnosis (1) Pneumonia Problem: Acute Qualifiers: Pneumonia type: due to unspecified organism Laterality: bilateral Lung location: lower lobe of lung Qualified Code(s): J18.9 - Pneumonia, unspecified organism Narrative: Upper lobes are also involved. This is a multi lobar pneumonia. (2) Altered mental status Problem: Acute Qualifiers: Altered mental status type: somnolence Qualified Code(s): R40.0 - Somnolence (3) Anemia Problem: Chronic Qualifiers: Anemia type: iron deficiency Iron deficiency anemia type: unspecified iron deficiency Qualified Code(s): D50.9 - Iron deficiency anemia, unspecified (4) Weakness Problem: Acute (5) Dementia Problem: Chronic Qualifiers: Dementia type: Alzheimer's disease Dementia behavioral disturbance: with behavioral disturbance Qualified Code(s): F03.91 - Unspecified dementia with behavioral disturbance (6) Confusion Problem: Acute (7) COPD (chronic obstructive pulmonary disease) Problem: Chronic Qualifiers: COPD type: emphysema Emphysema type: panlobular Qualified Code(s): J43.1 - Panlobular emphysema
[2019-12-28 18:52] LABS: Anion Gap 14.2 mmol/L (6.8-13.8); BUN/Creatinine Ratio 18.5 (9.0-21.6); Calcium * 8.5 mg/dL (7.9-10.9); Carbon Dioxide 24.2 mmol/L (24-32.6); Estimated Creat Clear 28.3; Potassium 4.4 mmol/L (3.4-4.6)
[2019-12-28] MEDS: ENOXAPARIN SODIUM 40 MG/0.4 ML SYRG SC SCH (20:53)
[2019-12-28] MEDS: AZITHROMYCIN 250 MG TABLET PO SCH (20:53)
[2019-12-28] MEDS: DONEPEZIL HCL 10 MG TABLET PO SCH (20:54)
[2019-12-28] MEDS: MELATONIN 3,000 MCG TABLET PO SCH (20:54)
[2019-12-28] MEDS: MONTELUKAST SODIUM 10 MG TABLET PO SCH (20:58)
[2019-12-29] MEDS: ALBUTEROL SULFATE/IPRATROPIUM 3 ML NEBU IH SCH ×4 (06:21→18:02)
[2019-12-29 06:29] LABS: Hematocrit 29.1 % (37.0-47.0); Hemoglobin 9.1 gm/dL (12.5-16.0); Mean Cell Volume 85.3 fl (78-100); Mean Corpuscular Hemoglobin 26.7 pg (27-31); Mean Corpuscular Hgb Conc 31.3 g/dl (32-36); Mean Platelet Volume 10.3 fl (8-12.5); Neutrophil # 12.8 K/mm3 (1.3-6.0); Neutrophil % 84.9 % (42-75.0); Platelet Count 263 K/mm3 (150-450); Red Blood Count 3.41 M/mm3 (4.2-5.4); Red Cell Distribution Width 17.9 % (11.5-14.0); White Blood Count 15.1 K/mm3 (4.0-10.5)
[2019-12-29] MEDS: PANTOPRAZOLE SODIUM 40 MG TABLET.EC PO SCH (06:49)
[2019-12-29] MEDS: traMADol HCL 50 MG TABLET PO PRN ×2 (07:48→16:04)
[2019-12-29] MEDS: FLUTICASONE PROPION/SALMETEROL 14 PUFF DISK.W.DEV IH SCH ×2 (08:56→21:26)
[2019-12-29] MEDS: ASPIRIN 81 MG TAB.CHEW PO SCH (08:57)
[2019-12-29] MEDS: MEMANTINE HCL 10 MG TABLET PO SCH (08:59)
[2019-12-29] MEDS: ISOSORBIDE DINITRATE 10 MG TABLET PO SCH (09:00)
[2019-12-29] MEDS: ACETAMINOPHEN 500 MG TABLET PO PRN (09:45)
[2019-12-29] MEDS: ONDANSETRON HCL 4 MG TABLET PO PRN (09:46)
[2019-12-29] MEDS: AZITHROMYCIN 250 MG TABLET PO SCH (09:46)
[2019-12-29] MEDS: DENTAL ADHESIVE 39 APPL TUBE TP SCH (10:04)
--- NOTE | 2019-12-29 17:31 | PN ---
Subjective - Date and Time Seen Date: 12/29/19 Time: 08:00 Subjective Narrative: Srinivas had an uneventful night. She seems to be in good spirits this morning. She does not appear to be in any respiratory distress. CBC shows the white count has dropped from 22,000-15,000. Lung sounds are essentially unchanged continues with rhonchi and wheezes. She is complaining of hurting in multiple locations. She has Tylenol ordered and it does seem helpful. She is also g etting tramadol. She is complaining of some nausea this morning. She is received ondansetron for that already. She still feels like she is too weak to get up and refused to work with physical therapy this morning again. Objective - Review of Systems Generalized/Overall Review: Reports: Weakness, Malaise EENTM: Reports: No Symptoms Reported Respiratory: Reports: Cough, Shortness of Breath, Wheezing Cardiac: Reports: No Symptoms Reported. Denies: Chest Pain, Edema, Palpitations, Syncope Abdominal: Reports: Nausea. Denies: Vomiting, Abdominal Pain Genitourinary Symptoms: Reports: No Symptoms Reported Musculoskeletal Complaints: Reports: No Symptoms Reported Neurological: Reports: Weakness Skin: Reports: No Symptoms Reported Endocrine: Reports: No Symptoms Reported - Vitals Vitals: Last Vital Signs Temp 36.9 C 12/29/19 14:39 Pulse 80 12/29/19 15:06 Resp 17 12/29/19 15:06 BP 108/44 12/29/19 14:39 Pulse Ox 90 L 12/29/19 14:56 - Abnormal Lab Findings Abnormal Lab Findings: Abnormal Lab Results 12/28/19 12/29/19 Range/Units 18:40 06:15 WBC 15.1 H D (4.0-10.5) K/mm3 RBC 3.41 L (4.2-5.4) M/mm3 Hgb 9.1 L (12.5-16.0) gm/dL Hct 29.1 L (37.0-47.0) % MCH 26.7 L (27-31) pg MCHC 31.3 L (32-36) g/dl RDW 17.9 H (11.5-14.0) % Immature Gran % (Auto) 0.80 H (0.001-0.429) % Immature Gran # (Auto) 0.12 H (0.000-0.0310) K/mm3 Neutrophils % 84.9 H (42-75.0) % Lymphocytes % 10.7 L (20-51) % Neutrophils # 12.8 H (1.3-6.0) K/mm3 Anion Gap 14.2 H (6.8-13.8) mmol/L Est GFR (Non-Af Amer) 52 L (60-130) mL/min Random Glucose 124 H D (70-110) mg/dL - EKG/Xray Findings EKG: NSR EKG read: Interp. by me Interpretation: Reviewed by me - Exam Constitutional: Present: Alert, Oriented x3, Cooperative, Well developed, Well nourished, No distress, Elderly ENT Exam: Present: normal ENT inspection, hearing grossly normal, pharynx normal Neck: Present: non-tender, supple, normal inspection, trachea midline, limited range of motion Breasts: Present: Exam deferred Respiratory: Present: chest non-tender, no accessory muscle use, rhonchi, wheezing Cardiovascular/Chest: Present: normal peripheral pulses, regular rate, rhythm, no chest tenderness, no edema, no gallop, no JVD, no murmur, no rub Abdomen: Present: Normal bowel sounds, soft, nontender, nondistended, no rebound tenderness, no hepatospenomegaly, no masses /Rectal: Present: Exam deferred, External genitalia normal Extremity: Present: normal range of motion, non-tender, normal inspection Skin Exam: Present: normal color, warm/dry, no cyanosis Lymphatic: Present: no adenopathy Neurologic: Present: hand upper and bottom lacer II-XII nml as tested Appearance: Present: appropriate appearance, appropriate insight, neat, impaired recent memory Thoughts: Present: normal thought pattern, no apparent hallucination Assessment/Plan Plan Narrative: 1. Continue IV antibiotic therapy and respiratory therapy. 2. Try to get her walking tomorrow 3. CBC and CMP tomorrow morning 4. Chest x-ray tomorrow morning 5. Monitor pain needs - Problems/Diagnosis (1) Pneumonia Problem: Acute Qualifiers: Pneumonia type: due to unspecified organism Laterality: bilateral Lung location: lower lobe of lung Qualified Code(s): J18.9 - Pneumonia, unspecified organism (2) Altered mental status Problem: Acute Qualifiers: Altered mental status type: somnolence Qualified Code(s): R40.0 - Somnolence (3) Anemia Problem: Chronic Qualifiers: Anemia type: iron deficiency Iron deficiency anemia type: unspecified iron deficiency Qualified Code(s): D50.9 - Iron deficiency anemia, unspecified (4) Weakness Problem: Acute (5) Dementia Problem: Chronic Qualifiers: Dementia type: Alzheimer's disease Dementia behavioral disturbance: with behavioral disturbance Qualified Code(s): F03.91 - Unspecified dementia with behavioral disturbance (6) Confusion Problem: Acute (7) COPD (chronic obstructive pulmonary disease) Problem: Chronic Qualifiers: COPD type: emphysema Emphysema type: panlobular Qualified Code(s): J43.1 - Panlobular emphysema
[2019-12-29] MEDS: ENOXAPARIN SODIUM 40 MG/0.4 ML SYRG SC SCH (21:27)
[2019-12-29] MEDS: MELATONIN 3,000 MCG TABLET PO SCH (21:27)
[2019-12-29] MEDS: MONTELUKAST SODIUM 10 MG TABLET PO SCH (21:28)
[2019-12-29] MEDS: DONEPEZIL HCL 10 MG TABLET PO SCH (21:28)
[2019-12-30 06:33] LABS: Hematocrit 28.9 % (37.0-47.0); Hemoglobin 8.9 gm/dL (12.5-16.0); Mean Cell Volume 86.5 fl (78-100); Mean Corpuscular Hemoglobin 26.6 pg (27-31); Mean Corpuscular Hgb Conc 30.8 g/dl (32-36); Mean Platelet Volume 10.2 fl (8-12.5); Neutrophil % 71.3 % (42-75.0); Platelet Count 275 K/mm3 (150-450); Red Blood Count 3.34 M/mm3 (4.2-5.4); Red Cell Distribution Width 17.9 % (11.5-14.0); White Blood Count 11.2 K/mm3 (4.0-10.5)
[2019-12-30] MEDS: ALBUTEROL SULFATE/IPRATROPIUM 3 ML NEBU IH SCH ×4 (06:43→18:06)
[2019-12-30 06:51] LABS: Albumin * 3.1 gm/dl (3.4-5.0); Anion Gap 12.1 mmol/L (6.8-13.8); BUN/Creatinine Ratio 22.9 (9.0-21.6); Bilirubin, Total 0.2 mg/dL (0.0-1.1); Ca. Corrected For Albumin 9.1 mg/dL (8.4-10.2); Calcium * 8.7 mg/dL (7.9-10.9); Carbon Dioxide 25.9 mmol/L (24-32.6); Total Protein 6.9 gm/dL (6.2-8.2)
[2019-12-30] MEDS: PANTOPRAZOLE SODIUM 40 MG TABLET.EC PO SCH (07:13)
[2019-12-30] MEDS: FLUTICASONE PROPION/SALMETEROL 14 PUFF DISK.W.DEV IH SCH ×2 (08:06→20:43)
[2019-12-30] MEDS: MEMANTINE HCL 10 MG TABLET PO SCH (08:07)
[2019-12-30] MEDS: AZITHROMYCIN 250 MG TABLET PO SCH (08:07)
[2019-12-30] MEDS: ASPIRIN 81 MG TAB.CHEW PO SCH (08:08)
[2019-12-30] MEDS: ISOSORBIDE DINITRATE 10 MG TABLET PO SCH (08:08)
[2019-12-30] MEDS: DENTAL ADHESIVE 39 APPL TUBE TP SCH (08:08)
[2019-12-30] MEDS: traMADol HCL 50 MG TABLET PO PRN (10:12)
--- NOTE | 2019-12-30 17:04 | PN ---
Subjective - Date and Time Seen Date: 12/30/19 Time: 08:20 Subjective Narrative: Mikaela had an uneventful night but seems more confused to me this morning. In reviewing her lab the white count is 11,200 and the hemoglobin had dropped to 8.9 g. This actually seems stable since the last 3 hemoglobins have been 8.8, 9.1 and 8.9. Her electrolytes are normal. Her EGFR has improved from 52-70 this morning. A repeat chest x-ray PA and lateral shows no improvement in the appearance of the pneumonia. I believe that the infection is coming under good control but she is not started to resolve the pneumonia yet. She is still not cooperating with physical therapy. She has walked with her daughter as far as the bathroom when the daughter is here. I spoke with her about discharge plans and they would like for her to go to [facility] as a skilled patient on Thursday. Therefore she will be here through the weekend. Objective - Review of Systems Generalized/Overall Review: Reports: Weakness, Malaise. Denies: Chills, Fever EENTM: Reports: No Symptoms Reported Respiratory: Reports: Cough, Shortness of Breath Cardiac: Reports: No Symptoms Reported Abdominal: Reports: No Symptoms Reported Genitourinary Symptoms: Reports: No Symptoms Reported, Incontinent Musculoskeletal Complaints: Reports: No Symptoms Reported Neurological: Reports: No Symptoms Reported Skin: Reports: No Symptoms Reported Endocrine: Reports: No Symptoms Reported - Vitals Vitals: Last Vital Signs Temp 36.6 C 12/30/19 14:00 Pulse 84 12/30/19 14:57 Resp 18 12/30/19 14:57 BP 129/53 12/30/19 14:00 Pulse Ox 97 12/30/19 14:47 - Abnormal Lab Findings Abnormal Lab Findings: Abnormal Lab Results 12/30/19 12/30/19 Range/Units 06:25 06:25 WBC 11.2 H D (4.0-10.5) K/mm3 RBC 3.34 L (4.2-5.4) M/mm3 Hgb 8.9 L (12.5-16.0) gm/dL Hct 28.9 L (37.0-47.0) % MCH 26.6 L (27-31) pg MCHC 30.8 L (32-36) g/dl RDW 17.9 H (11.5-14.0) % Immature Gran % (Auto) 0.50 H (0.001-0.429) % Immature Gran # (Auto) 0.06 H (0.000-0.0310) K/mm3 Neutrophils # 8.0 H (1.3-6.0) K/mm3 Chloride 107 H (97-106) mmol/L BUN/Creatinine Ratio 22.9 H (9.0-21.6) ALT 11 L (19-67) U/L Albumin 3.1 L (3.4-5.0) gm/dl - EKG/Xray Findings Interpretation: Reviewed by me - Exam Constitutional: Present: Alert, Cooperative, Well developed, Well nourished, No distress, Lethargic, Elderly, Obese ENT Exam: Present: normal ENT inspection Neck: Present: non-tender, limited range of motion Breasts: Present: Exam deferred Respiratory: Present: chest non-tender, decreased breath sounds, rhonchi, wheezing Cardiovascular/Chest: Present: normal peripheral pulses, regular rate, rhythm, no chest tenderness, no edema, no gallop, no JVD, no murmur, no rub Abdomen: Present: Normal bowel sounds, soft, nontender, nondistended, no rebound tenderness, no hepatospenomegaly, no masses /Rectal: Present: Exam deferred Extremity: Present: normal range of motion, non-tender, normal inspection, no pedal edema, no calf tenderness, normal capillary refill Skin Exam: Present: normal color, warm/dry, no cyanosis Lymphatic: Present: no adenopathy Neurologic: Present: operations and intelligence assistant II-XII nml as tested Appearance: Present: appropriate appearance Eye contact: Present: cooperative, good eye contact, normal speech Thoughts: Present: normal thought pattern, no apparent hallucination Assessment/Plan Plan Narrative: Continue IV antibiotics, Continue respiratory therapy treatments Monitor lab work and repeat in the morning Progress activity as she will allow Dr. Martinez to manage in my absence. - Problems/Diagnosis (1) Pneumonia Problem: Acute Qualifiers: Pneumonia type: due to unspecified organism Laterality: bilateral Lung location: lower lobe of lung Qualified Code(s): J18.9 - Pneumonia, unspecified organism (2) Altered mental status Problem: Acute Qualifiers: Altered mental status type: somnolence Qualified Code(s): R40.0 - Somnolence (3) Anemia Problem: Chronic Qualifiers: Anemia type: iron deficiency Iron deficiency anemia type: unspecified iron deficiency Qualified Code(s): D50.9 - Iron deficiency anemia, unspecified (4) Weakness Problem: Acute (5) Dementia Problem: Chronic Qualifiers: Dementia type: Alzheimer's disease Dementia behavioral disturbance: with behavioral disturbance Qualified Code(s): F03.91 - Unspecified dementia with behavioral disturbance (6) Confusion Problem: Acute (7) COPD (chronic obstructive pulmonary disease) Problem: Chronic Qualifiers: COPD type: emphysema Emphysema type: panlobular Qualified Code(s): J43.1 - Panlobular emphysema
[2019-12-30] MEDS: ENOXAPARIN SODIUM 40 MG/0.4 ML SYRG SC SCH (20:43)
[2019-12-30] MEDS: MELATONIN 3,000 MCG TABLET PO SCH (20:44)
[2019-12-30] MEDS: DONEPEZIL HCL 10 MG TABLET PO SCH (20:44)
[2019-12-30] MEDS: MONTELUKAST SODIUM 10 MG TABLET PO SCH (20:44)
[2019-12-31] MEDS: ALBUTEROL SULFATE/IPRATROPIUM 3 ML NEBU IH SCH ×6 (06:11→18:03)
[2019-12-31] MEDS: PANTOPRAZOLE SODIUM 40 MG TABLET.EC PO SCH (07:16)
[2019-12-31] MEDS: traMADol HCL 50 MG TABLET PO PRN ×2 (07:18→21:08)
[2019-12-31] MEDS: DENTAL ADHESIVE 39 APPL TUBE TP SCH (08:58)
[2019-12-31] MEDS: FLUTICASONE PROPION/SALMETEROL 14 PUFF DISK.W.DEV IH SCH ×2 (08:58→21:08)
[2019-12-31] MEDS: ISOSORBIDE DINITRATE 10 MG TABLET PO SCH (08:58)
[2019-12-31] MEDS: AZITHROMYCIN 250 MG TABLET PO SCH (08:59)
[2019-12-31] MEDS: ASPIRIN 81 MG TAB.CHEW PO SCH (08:59)
[2019-12-31] MEDS: MEMANTINE HCL 10 MG TABLET PO SCH (09:00)
[2019-12-31] MEDS: ACETAMINOPHEN 500 MG TABLET PO PRN (10:57)
--- NOTE | 2019-12-31 14:55 | PN ---
Subjective - Date and Time Seen Date: 12/31/19 Time: 09:00 Subjective Narrative: No acute events overnight. Pt complaining of poor appetite. Advised will add ensure Objective - Review of Systems Generalized/Overall Review: Reports: Weakness, Fatigue. Denies: Chills, Fever EENTM: Reports: No Symptoms Reported Respiratory: Reports: Shortness of Breath. Denies: Cough, Stridor, Wheezing Cardiac: Denies: Chest Pain Abdominal: Reports: Nausea, Abdominal Pain. Denies: Vomiting Genitourinary Symptoms: Reports: No Symptoms Reported Musculoskeletal Complaints: Reports: No Symptoms Reported Neurological: Reports: Weakness Skin: Reports: Dryness Endocrine: Reports: No Symptoms Reported - Vitals Vitals: Last Vital Signs Temp 36.4 C 12/31/19 14:34 Pulse 85 12/31/19 14:34 Resp 22 H 12/31/19 14:34 BP 113/46 12/31/19 14:34 Pulse Ox 91 L 12/31/19 14:34 - Exam Constitutional: Present: Alert, Oriented x3, Cooperative ENT Exam: Present: hearing grossly normal Neck: Present: non-tender, full range of motion, supple Respiratory: Present: lungs clear, normal breath sounds, no respiratory distress Cardiovascular/Chest: Present: normal peripheral pulses, regular rate, rhythm, no chest tenderness, no edema, no gallop, no JVD, no murmur Abdomen: Present: Normal bowel sounds, soft, nontender Extremity: Present: normal range of motion, non-tender, normal inspection, no pedal edema, no calf tenderness, normal capillary refill Skin Exam: Present: pallor Neurologic: Present: alert, oriented x 3 Appearance: Present: appropriate appearance, appropriate insight Eye contact: Present: cooperative, good eye contact Thoughts: Present: normal thought pattern Assessment/Plan Plan Narrative: Assessment/Plan 79 year old F admitted for PNA, Anemia, Leukocytosis, Weakness and Dementia Pneumonia - Leukocytosis trending down - Cont with current rocephin IV 1 gm - Transition to PO abx in AM Anemia - Stable - Asymptomatic Weakness - Tolerating PT Dementia - Stable FEN: Added ensure to regular diet due to poor appetite and zofran prior to meals DVT PPX: Lovenox 40 mg SC CODE STATUS: Full Code Disposition - Continue to monitor - Will transition to PO abx in AM - Will d/c to [facility] on Thursday01/02/20 AM - Problems/Diagnosis (1) Pneumonia Problem: Acute Qualifiers: Pneumonia type: due to unspecified organism Laterality: bilateral Lung location: lower lobe of lung Qualified Code(s): J18.9 - Pneumonia, unspecified organism (2) Anemia Problem: Chronic Qualifiers: Anemia type: iron deficiency Iron deficiency anemia type: unspecified iron deficiency Qualified Code(s): D50.9 - Iron deficiency anemia, unspecified (3) Dementia Problem: Chronic Qualifiers: Dementia type: Alzheimer's disease Dementia behavioral disturbance: with behavioral disturbance Qualified Code(s): F03.91 - Unspecified dementia with behavioral disturbance (4) Weakness Problem: Acute
[2019-12-31] MEDS: ENOXAPARIN SODIUM 40 MG/0.4 ML SYRG SC SCH (21:08)
[2019-12-31] MEDS: DONEPEZIL HCL 10 MG TABLET PO SCH (21:09)
[2019-12-31] MEDS: MONTELUKAST SODIUM 10 MG TABLET PO SCH (21:09)
[2019-12-31] MEDS: MELATONIN 3,000 MCG TABLET PO SCH (21:09)
[2020-01-01 05:35] LABS: Hemoglobin 9.1 gm/dL (12.5-16.0); Mean Cell Volume 85.8 fl (78-100); Mean Corpuscular Hemoglobin 26.9 pg (27-31); Mean Corpuscular Hgb Conc 31.4 g/dl (32-36); Mean Platelet Volume 10.4 fl (8-12.5); Neutrophil # 5.7 K/mm3 (1.3-6.0); Neutrophil % 62.3 % (42-75.0); Platelet Count 308 K/mm3 (150-450); Red Blood Count 3.38 M/mm3 (4.2-5.4); Red Cell Distribution Width 17.9 % (11.5-14.0); White Blood Count 9.1 K/mm3 (4.0-10.5)
[2020-01-01 05:52] LABS: Anion Gap 12.7 mmol/L (6.8-13.8); BUN/Creatinine Ratio 34.2 (9.0-21.6); Bilirubin, Total 0.2 mg/dL (0.0-1.1); Ca. Corrected For Albumin 9.4 mg/dL (8.4-10.2); Calcium * 8.9 mg/dL (7.9-10.9); Carbon Dioxide 24.5 mmol/L (24-32.6); Potassium 3.2 mmol/L (3.4-4.6); Total Protein 6.6 gm/dL (6.2-8.2)
[2020-01-01] MEDS: ALBUTEROL SULFATE/IPRATROPIUM 3 ML NEBU IH SCH ×4 (06:12→18:15)
[2020-01-01] MEDS: PANTOPRAZOLE SODIUM 40 MG TABLET.EC PO SCH (07:56)
[2020-01-01] MEDS: traMADol HCL 50 MG TABLET PO PRN ×3 (07:56→20:03)
[2020-01-01] MEDS: FLUTICASONE PROPION/SALMETEROL 14 PUFF DISK.W.DEV IH SCH ×2 (08:33→20:04)
[2020-01-01] MEDS: DENTAL ADHESIVE 39 APPL TUBE TP SCH (08:34)
[2020-01-01] MEDS: ISOSORBIDE DINITRATE 10 MG TABLET PO SCH (08:34)
[2020-01-01] MEDS: MEMANTINE HCL 10 MG TABLET PO SCH (08:34)
[2020-01-01] MEDS: ASPIRIN 81 MG TAB.CHEW PO SCH (08:34)
[2020-01-01] MEDS: POTASSIUM CHLORIDE IN WATER 100 ML IV SCH ×4 (10:11→13:17)
--- NOTE | 2020-01-01 12:21 | PN ---
Subjective - Date and Time Seen Date: 01/01/20 Time: 08:00 Subjective Narrative: no acute events overnight. Objective - Review of Systems Generalized/Overall Review: Reports: Weakness EENTM: Reports: No Symptoms Reported Respiratory: Denies: Shortness of Breath Cardiac: Denies: Chest Pain Abdominal: Denies: Abdominal Pain Genitourinary Symptoms: Reports: Incontinent Musculoskeletal Complaints: Denies: Joint Pain, Back Pain, Joint Swelling Neurological: Reports: Pre-existing Deficit - Dementia Skin: Denies: Dryness Endocrine: Reports: Intolerance to Cold - Requesting blankets - Vitals Vitals: Last Vital Signs Temp 36.5 C 01/01/20 10:29 Pulse 86 01/01/20 10:40 Resp 20 01/01/20 10:40 BP 146/61 01/01/20 10:29 Pulse Ox 91 L 01/01/20 10:30 - Abnormal Lab Findings Abnormal Lab Findings: Abnormal Lab Results 01/01/20 01/01/20 Range/Units 04:30 04:30 RBC 3.38 L (4.2-5.4) M/mm3 Hgb 9.1 L (12.5-16.0) gm/dL Hct 29.0 L (37.0-47.0) % MCH 26.9 L (27-31) pg MCHC 31.4 L (32-36) g/dl RDW 17.9 H (11.5-14.0) % Immature Gran % (Auto) 1.50 H (0.001-0.429) % Immature Gran # (Auto) 0.14 H (0.000-0.0310) K/mm3 Potassium 3.2 L (3.4-4.6) mmol/L Chloride 107 H (97-106) mmol/L BUN 25 H (3-23) mg/dL BUN/Creatinine Ratio 34.2 H (9.0-21.6) ALT 10 L (19-67) U/L Albumin 3.0 L (3.4-5.0) gm/dl - Exam Constitutional: Present: Alert, Oriented x3, Cooperative, Well developed ENT Exam: Present: hearing grossly normal Neck: Present: non-tender, full range of motion, supple Respiratory: Present: chest non-tender, lungs clear, normal breath sounds Cardiovascular/Chest: Present: normal peripheral pulses, regular rate, rhythm, no chest tenderness, no edema Abdomen: Present: Normal bowel sounds, soft /Rectal: Present: Exam deferred Extremity: Present: normal range of motion, non-tender, normal inspection, no pedal edema, no calf tenderness Skin Exam: Present: normal color, warm/dry Neurologic: Present: alert, oriented x 3 Appearance: Present: appropriate appearance, appropriate insight Eye contact: Present: cooperative, good eye contact Thoughts: Present: normal thought pattern Assessment/Plan Plan Narrative: Assessment/Plan 79 year old F admitted for PNA, Anemia, Leukocytosis, Weakness and Dementia Pneumonia - Leukocytosis resolved -Transition to p.o. antibiotic Anemia - Stable - Asymptomatic Weakness - Tolerating PT Dementia - Stable FEN: Added ensure to regular diet due to poor appetite and zofran prior to meals DVT PPX: Lovenox 40 mg SC CODE STATUS: Full Code Disposition -Awaiting placement - Will d/c to [facility] on Thursday01/02/20 AM - Problems/Diagnosis (1) Pneumonia Problem: Acute Qualifiers: Pneumonia type: due to unspecified organism Laterality: bilateral Lung location: lower lobe of lung Qualified Code(s): J18.9 - Pneumonia, unspecified organism (2) Anemia Problem: Chronic Qualifiers: Anemia type: iron deficiency Iron deficiency anemia type: unspecified iron deficiency Qualified Code(s): D50.9 - Iron deficiency anemia, unspecified (3) Dementia Problem: Chronic Qualifiers: Dementia type: Alzheimer's disease Dementia behavioral disturbance: with behavioral disturbance (4) Weakness Problem: Acute
[2020-01-01] MEDS: LEVOFLOXACIN 750 MG TABLET PO SCH (14:01)
[2020-01-01] MEDS: DONEPEZIL HCL 10 MG TABLET PO SCH (20:04)
[2020-01-01] MEDS: MELATONIN 3,000 MCG TABLET PO SCH (20:04)
[2020-01-01] MEDS: MONTELUKAST SODIUM 10 MG TABLET PO SCH (20:05)
[2020-01-01] MEDS: ENOXAPARIN SODIUM 40 MG/0.4 ML SYRG SC SCH (20:05)
[2020-01-02 06:07] LABS: Hematocrit 31.2 % (37.0-47.0); Hemoglobin 9.7 gm/dL (12.5-16.0); Mean Cell Volume 85.2 fl (78-100); Mean Corpuscular Hemoglobin 26.5 pg (27-31); Mean Corpuscular Hgb Conc 31.1 g/dl (32-36); Mean Platelet Volume 10.4 fl (8-12.5); Neutrophil # 5.2 K/mm3 (1.3-6.0); Neutrophil % 58.2 % (42-75.0); Platelet Count 321 K/mm3 (150-450); Red Blood Count 3.66 M/mm3 (4.2-5.4); White Blood Count 8.9 K/mm3 (4.0-10.5)
[2020-01-02] MEDS: ALBUTEROL SULFATE/IPRATROPIUM 3 ML NEBU IH SCH ×4 (06:13→18:25)
[2020-01-02 06:59] LABS: Albumin * 3.1 gm/dl (3.4-5.0); Anion Gap 13.9 mmol/L (6.8-13.8); BUN/Creatinine Ratio 25.6 (9.0-21.6); Bilirubin, Total 0.3 mg/dL (0.0-1.1); Ca. Corrected For Albumin 9.2 mg/dL (8.4-10.2); Calcium * 8.8 mg/dL (7.9-10.9); Carbon Dioxide 24.9 mmol/L (24-32.6); Potassium 3.8 mmol/L (3.4-4.6); Total Protein 6.8 gm/dL (6.2-8.2)
--- NOTE | 2020-01-02 09:16 | PN ---
Subjective - Date and Time Seen Date: 01/02/20 Time: 09:13 Subjective Narrative: no acute events overnight. Objective - Review of Systems Generalized/Overall Review: Denies: Weakness, Chills EENTM: Reports: No Symptoms Reported Respiratory: Denies: Cough, Shortness of Breath Cardiac: Denies: Chest Pain, Edema Abdominal: Denies: Abdominal Pain Genitourinary Symptoms: Denies: Incontinent Musculoskeletal Complaints: Denies: Joint Pain, Back Pain, Joint Swelling Neurological: Reports: Weakness Skin: Reports: Dryness Endocrine: Reports: No Symptoms Reported - Vitals Vitals: Last Vital Signs Temp 37.2 C 01/02/20 06:39 Pulse 75 01/02/20 06:39 Resp 12 01/02/20 06:39 BP 152/46 H 01/02/20 06:39 Pulse Ox 95 01/02/20 06:39 - Abnormal Lab Findings Abnormal Lab Findings: Abnormal Lab Results 01/02/20 01/02/20 Range/Units 05:10 05:10 RBC 3.66 L (4.2-5.4) M/mm3 Hgb 9.7 L (12.5-16.0) gm/dL Hct 31.2 L (37.0-47.0) % MCH 26.5 L (27-31) pg MCHC 31.1 L (32-36) g/dl RDW 18.0 H (11.5-14.0) % Immature Gran % (Auto) 1.70 H (0.001-0.429) % Immature Gran # (Auto) 0.15 H (0.000-0.0310) K/mm3 Monocytes % 9.5 H (0.0-9) % Anion Gap 13.9 H (6.8-13.8) mmol/L BUN/Creatinine Ratio 25.6 H (9.0-21.6) Albumin 3.1 L (3.4-5.0) gm/dl - Exam Constitutional: Present: Alert, Oriented x3, Cooperative, No distress ENT Exam: Present: hearing grossly normal Neck: Present: non-tender, full range of motion Respiratory: Present: lungs clear, normal breath sounds, no respiratory distress Cardiovascular/Chest: Present: normal peripheral pulses, regular rate, rhythm, no chest tenderness, no edema Abdomen: Present: Normal bowel sounds, soft, nontender /Rectal: Present: Exam deferred Extremity: Present: normal range of motion, non-tender, normal inspection, no pedal edema Skin Exam: Present: normal color, warm/dry Neurologic: Present: alert, oriented x 3 Appearance: Present: appropriate appearance, other - dementia Thoughts: Present: normal thought pattern Assessment/Plan Plan Narrative: Assessment/Plan 79 year old F admitted for PNA, Anemia, Leukocytosis, Weakness and Dementia Pneumonia - Leukocytosis resolved -Transitioned to p.o. antibiotics Anemia - Stable - Asymptomatic Weakness - Tolerating PT Dementia - Stable FEN: Added ensure to regular diet due to poor appetite and zofran prior to meals DVT PPX: Lovenox 40 mg SC CODE STATUS: Full Code Disposition -Awaiting placement - Continue PT - Will d/c to [facility] once placement has been found - Problems/Diagnosis (1) Pneumonia Problem: Acute Qualifiers: Pneumonia type: due to unspecified organism Laterality: bilateral Lung location: lower lobe of lung Qualified Code(s): J18.9 - Pneumonia, unspecified organism (2) Anemia Problem: Chronic Qualifiers: Anemia type: iron deficiency Iron deficiency anemia type: unspecified iron deficiency Qualified Code(s): D50.9 - Iron deficiency anemia, unspecified (3) Dementia Problem: Chronic Qualifiers: Dementia type: Alzheimer's disease Dementia behavioral disturbance: with behavioral disturbance (4) Weakness Problem: Acute
--- NOTE | 2020-01-02 09:23 | DS ---
(1) Pneumonia Problem: Acute Qualifiers: Pneumonia type: due to unspecified organism Laterality: bilateral Lung location: lower lobe of lung Qualified Code(s): J18.9 - Pneumonia, unspecified organism (2) Anemia Problem: Chronic Qualifiers: Anemia type: iron deficiency Iron deficiency anemia type: unspecified iron deficiency Qualified Code(s): D50.9 - Iron deficiency anemia, unspecified (3) Dementia Problem: Chronic Qualifiers: Dementia type: Alzheimer's disease Dementia behavioral disturbance: with behavioral disturbance (4) Weakness Problem: Acute Date of Discharge:: 01/02/20 Hospital Course: Mikaela Ontiveros is an 79-year-old female who still lives at home and cared for by her daughter. She became ill about a week ago and has had increasing confusion and increasing muscle weakness since then. It became severe enough today that she could not stand to walk to the bathroom and was brought to the hospital for evaluation. The ER testing demonstrated a right lower lobe infiltrate. She was given some IV fluids, respiratory therapy treatments, and started on Rocephin and azithromycin in the emergency room. Admitted to observation status for continued treatment of her pneumonia. Her oxygen saturations have been in the 90s 92% range on room air. Laboratory work shows a white count of 20,000 with a left shift. Although wheezing in the emergency room she is received several breathing treatments and on my exam there are only scattered wheezes that are faint. There are some diminished breath sounds in the right lower lobe consistent with her pneumonia. She is in no distress at the time of my exam this evening. She is alert and conversant and answers questions appropriately. Responded will to IV antibiotics and transitioned to PO antibiotics. PT consulted for generalized weakness which is gradually improving. Anemia remained stable during hospitalization. Oral intake not at baseline. Will discharge to intermediate for further care Procedures Performed: none Care Plan Goals: PT for strengthening Plan of Treatment: discharge to intermediate for further care Health Concerns: poor oral intake and generalized weakness and worsening dementia Assessment: Pneumonia Generalized weakness Poor oral intake Results and Findings: Lab Pending Results 12/27/19 14:30: WBC 20.6 H, RBC 3.55 L, Hgb 9.5 L, Hct 30.8 L, MCV 86.8, MCH 26.8 L, MCHC 30.8 L, RDW 18.1 H, Plt Count 283, MPV 10.9, Immature Gran % (Auto) 1.00 H, Immature Gran # (Auto) 0.20 H, Neutrophils % 88.7 H, Lymphocytes % 4.8 L, Monocytes % 5.1, Eosinophils % 0.2, Basophils % 0.2, Nucleated RBC % 0.0, Neutrophils # 18.2 H, Lymphocytes # 0.98 L, Monocytes # 1.0, Eosinophils # 0.1, Absolute Basophils 0.0 12/27/19 14:30: Sodium 137, Plasma Sodium 137, Potassium 4.3 D, Chloride 105, Carbon Dioxide 24.6, Anion Gap 11.7, BUN 28 H D, Creatinine 1.05, Est GFR (Non- Af Amer) 54 L D, BUN/Creatinine Ratio 26.7 H, Random Glucose 98, Calcium 8.6, Calcium Adj for Albumin 8.8, Total Bilirubin 0.3, AST 16, ALT 12 L, Alkaline Phosphatase 103, Troponin I Less than 0.017, B-Natriuretic Peptide 144, Total Protein 7.0, Albumin 3.4 12/27/19 14:30: Influenza Type A Ag Negative, Influenza Type B Ag Negative 12/27/19 14:30: Lactic Acid, Venous 1.6 12/27/19 16:11: Urine Color Yellow, Urine Appearance Clear, Urine pH 6.0, Ur Specific [place] 1.030, Urine Protein Negative, Urine Glucose (UA) Negative, Urine Ketones Negative, Urine Blood Negative, Urine Nitrate Negative, Urine Bilirubin Negative, Urine Urobilinogen Normal, Ur Leukocyte Esterase Negative, Urine RBC None seen, Urine WBC 0-5, Ur Epithelial Cells 0-5, Urine Bacteria None seen, Urine Culture Comments No culture indicated 12/28/19 06:16: WBC 22.0 H, RBC 3.25 L, Hgb 8.8 L, Hct 27.9 L, MCV 85.8, MCH 27.1, MCHC 31.5 L, RDW 18.0 H, Plt Count 254, MPV 11.2, Immature Gran % (Auto) 0.50 H, Immature Gran # (Auto) 0.10 H, Neutrophils % 83.2 H, Lymphocytes % 12.6 L, Monocytes % 3.2, Eosinophils % 0.3, Basophils % 0.2, Nucleated RBC % 0.0, Neutrophils # 18.3 H, Lymphocytes # 2.78, Monocytes # 0.7, Eosinophils # 0.1, Absolute Basophils 0.0 12/28/19 06:16: Sodium 140, Plasma Sodium 140, Potassium 4.0, Chloride 106, Carbon Dioxide 25.4, Anion Gap 12.6, BUN 24 H, Creatinine 0.92, Est GFR (Non-Af Amer) 62, BUN/Creatinine Ratio 26.1 H, Random Glucose 85, Calcium 8.8, Calcium Adj for Albumin 9.3, Total Bilirubin 0.4, AST 14, ALT 8 L, Alkaline Phosphatase 96, Total Protein 6.4, Albumin 3.0 L 12/28/19 18:40: Sodium 138, Plasma Sodium 138, Potassium 4.4, Chloride 104, Carbon Dioxide 24.2, Anion Gap 14.2 H, BUN 20, Creatinine 1.08, Est GFR (Non-Af Amer) 52 L, BUN/Creatinine Ratio 18.5, Random Glucose 124 H D, Calcium 8.5 12/29/19 06:15: WBC 15.1 H D, RBC 3.41 L, Hgb 9.1 L, Hct 29.1 L, MCV 85.3, MCH 26.7 L, MCHC 31.3 L, RDW 17.9 H, Plt Count 263, MPV 10.3, Immature Gran % (Auto) 0.80 H, Immature Gran # (Auto) 0.12 H, Neutrophils % 84.9 H, Lymphocytes % 10.7 L, Monocytes % 3.1, Eosinophils % 0.2, Basophils % 0.3, Nucleated RBC % 0.0, Neutrophils # 12.8 H, Lymphocytes # 1.61, Monocytes # 0.5, Eosinophils # 0.0, Absolute Basophils 0.0 12/30/19 06:25: WBC 11.2 H D, RBC 3.34 L, Hgb 8.9 L, Hct 28.9 L, MCV 86.5, MCH 26.6 L, MCHC 30.8 L, RDW 17.9 H, Plt Count 275, MPV 10.2, Immature Gran % (Auto) 0.50 H, Immature Gran # (Auto) 0.06 H, Neutrophils % 71.3, Lymphocytes % 21.6, Monocytes % 4.5, Eosinophils % 1.7, Basophils % 0.4, Nucleated RBC % 0.0, Neutrophils # 8.0 H, Lymphocytes # 2.41, Monocytes # 0.5, Eosinophils # 0.2, Absolute Basophils 0.1 12/30/19 06:25: Sodium 141, Plasma Sodium 141, Potassium 4.0, Chloride 107 H, Carbon Dioxide 25.9, Anion Gap 12.1, BUN 19, Creatinine 0.83, Est GFR (Non-Af Amer) 70 D, BUN/Creatinine Ratio 22.9 H, Random Glucose 85 D, Calcium 8.7, Calcium Adj for Albumin 9.1, Total Bilirubin 0.2, AST 13, ALT 11 L, Alkaline Phosphatase 96, Total Protein 6.9, Albumin 3.1 L 01/01/20 04:30: WBC 9.1, RBC 3.38 L, Hgb 9.1 L, Hct 29.0 L, MCV 85.8, MCH 26.9 L, MCHC 31.4 L, RDW 17.9 H, Plt Count 308, MPV 10.4, Immature Gran % (Auto) 1.50 H, Immature Gran # (Auto) 0.14 H, Neutrophils % 62.3, Lymphocytes % 26.8, Monocytes % 7.2, Eosinophils % 1.9, Basophils % 0.3, Nucleated RBC % 0.0, Neutrophils # 5.7, Lymphocytes # 2.44, Monocytes # 0.7, Eosinophils # 0.2, Absolute Basophils 0.0 01/01/20 04:30: Sodium 141, Plasma Sodium 141, Potassium 3.2 L, Chloride 107 H, Carbon Dioxide 24.5, Anion Gap 12.7, BUN 25 H, Creatinine 0.73, Est GFR (Non-Af Amer) 82, BUN/Creatinine Ratio 34.2 H, Random Glucose 94, Calcium 8.9, Calcium Adj for Albumin 9.4, Total Bilirubin 0.2, AST 15, ALT 10 L, Alkaline Phosphatase 82, Total Protein 6.6, Albumin 3.0 L 01/02/20 05:10: WBC 8.9, RBC 3.66 L, Hgb 9.7 L, Hct 31.2 L, MCV 85.2, MCH 26.5 L, MCHC 31.1 L, RDW 18.0 H, Plt Count 321, MPV 10.4, Immature Gran % (Auto) 1.70 H, Immature Gran # (Auto) 0.15 H, Neutrophils % 58.2, Lymphocytes % 28.0, Monocytes % 9.5 H, Eosinophils % 2.0, Basophils % 0.6, Nucleated RBC % 0.0, Neutrophils # 5.2, Lymphocytes # 2.48, Monocytes # 0.8, Eosinophils # 0.2, Absolute Basophils 0.1 01/02/20 05:10: Sodium 141, Plasma Sodium 141, Potassium 3.8, Chloride 106, Carbon Dioxide 24.9, Anion Gap 13.9 H, BUN 21, Creatinine 0.82, Est GFR (Non-Af Amer) 71, BUN/Creatinine Ratio 25.6 H, Random Glucose 88, Calcium 8.8, Calcium Adj for Albumin 9.2, Total Bilirubin 0.3, AST 25, ALT 23, Alkaline Phosphatase 91, Total Protein 6.8, Albumin 3.1 L Disposition: Home self-care Condition: Fair Discharge Activity: Activity as tolerated, Other Discharge Diet: Low salt Half-Way Therapy: Physical Therapy, Occupation Therapy Additional Patient Instructions (free text): Has [facility] ongoing, please call and fax discharge orders to them. Complete Home Medications List: Complete Home Medication List: Acetaminophen [Tylenol] 500 mg PO Q3H PRN 08/30/19 Albuterol Sulfate [Proair Respiclick] 90 mcg INHALATION BID PRN 08/30/19 Albuterol Sulfate/Ipratropium [Duoneb 2.5-0.5MG/3ML Soln] 3 ml INHALATION QID 08/30/19 Aspirin 81 mg PO DAILY 08/30/19 Atorvastatin Calcium 10 mg PO DAILY 08/30/19 Celecoxib 200 mg PO DAILY 08/30/19 Diltiazem HCl [Diltiazem 12Hr ER] 120 mg PO DAILY 08/30/19 Donepezil HCl 10 mg PO HS 08/30/19 Esomeprazole Magnesium 40 mg PO DAILY 08/30/19 Fluticasone Propion/Salmeterol [Advair 500-50 Diskus] 2 puff INHALATION BID 08/30/19 Ipratropium [place] [Atrovent] 0.5 mg INHALATION QID PRN 08/30/19 Isosorbide Dinitrate 30 mg PO DAILY 08/30/19 Meclizine HCl 25 mg PO TID 08/30/19 Melatonin 5 mg PO HS 08/30/19 Memantine HCl 5 mg PO DAILY 08/30/19 Montelukast Sodium [Singulair] 10 mg PO HS 08/30/19 Nystatin 15 gm TOPICAL DAILY 08/30/19 Polyethylene Glycol 3350 [Gavilax] 17 gm PO DAILY 08/30/19 Pregabalin [Lyrica] 50 mg PO TID 08/30/19 guaiFENesin [Mucus ER] 600 mg PO BID PRN 08/30/19 traMADol HCL [Tramadol HCl] 50 mg PO Q6H PRN 08/30/19 Fluticasone Propionate [Flonase] 2 spray NS DAILY 09/01/19 Mag Hydrox/Aluminum Hyd/Simeth [Marisol-Lanta Liquid] 15 ml PO QID PRN 12/27/19 Phenyleph/Mineral Oil/Petrolat [Preparation H Ointment] 1 appl RC QID PRN 12/27/19
[2020-01-02] MEDS: ASPIRIN 81 MG TAB.CHEW PO SCH (10:33)
[2020-01-02] MEDS: ISOSORBIDE DINITRATE 10 MG TABLET PO SCH (10:34)
[2020-01-02] MEDS: LEVOFLOXACIN 750 MG TABLET PO SCH (10:35)
[2020-01-02] MEDS: PANTOPRAZOLE SODIUM 40 MG TABLET.EC PO SCH (10:35)
[2020-01-02] MEDS: FLUTICASONE PROPION/SALMETEROL 14 PUFF DISK.W.DEV IH SCH ×2 (10:35→21:43)
[2020-01-02] MEDS: MEMANTINE HCL 10 MG TABLET PO SCH (10:35)
[2020-01-02] MEDS: DENTAL ADHESIVE 39 APPL TUBE TP SCH (10:40)
[2020-01-02] MEDS: traMADol HCL 50 MG TABLET PO PRN ×2 (11:14→17:47)
[2020-01-02] MEDS: ACETAMINOPHEN 500 MG TABLET PO PRN ×3 (12:20→21:44)
[2020-01-02] MEDS: ONDANSETRON HCL 4 MG TABLET PO PRN (12:21)
[2020-01-02] MEDS: DONEPEZIL HCL 10 MG TABLET PO SCH (21:43)
[2020-01-02] MEDS: MONTELUKAST SODIUM 10 MG TABLET PO SCH (21:43)
[2020-01-02] MEDS: ENOXAPARIN SODIUM 40 MG/0.4 ML SYRG SC SCH (21:43)
[2020-01-02] MEDS: MELATONIN 3,000 MCG TABLET PO SCH (21:43)
[2020-01-03] MEDS: ALBUTEROL SULFATE/IPRATROPIUM 3 ML NEBU IH SCH ×4 (06:02→18:08)
[2020-01-03] MEDS: ACETAMINOPHEN 500 MG TABLET PO PRN ×3 (06:42→19:10)
[2020-01-03] MEDS: ONDANSETRON HCL 4 MG TABLET PO PRN (06:42)
[2020-01-03] MEDS: traMADol HCL 50 MG TABLET PO PRN ×3 (06:43→19:09)
[2020-01-03] MEDS: PANTOPRAZOLE SODIUM 40 MG TABLET.EC PO SCH (06:43)
[2020-01-03] MEDS: MEMANTINE HCL 10 MG TABLET PO SCH (08:34)
[2020-01-03] MEDS: ASPIRIN 81 MG TAB.CHEW PO SCH (08:34)
[2020-01-03] MEDS: ISOSORBIDE DINITRATE 10 MG TABLET PO SCH (08:34)
[2020-01-03] MEDS: DENTAL ADHESIVE 39 APPL TUBE TP SCH (08:34)
[2020-01-03] MEDS: FLUTICASONE PROPION/SALMETEROL 14 PUFF DISK.W.DEV IH SCH ×2 (08:36→21:14)
--- NOTE | 2020-01-03 17:44 | PN ---
Subjective - Date and Time Seen Date: 01/03/20 Time: 07:55 Subjective Narrative: Mikaela seems to be in good spirits this morning and is in no acute distress. She has been coughing but it is been nonproductive. She is sitting up in a chair and finishing breakfast at this time. She has no requests or complaints. Nursing has no concerns. The multilobular pneumonia clinically seems improved but radiographically he has not shown any improvement however it is been 4 days since her last chest x-ray. Objective - Review of Systems Generalized/Overall Review: Reports: Weakness. Denies: Chills, Fever, Malaise EENTM: Reports: No Symptoms Reported Respiratory: Reports: Cough Cardiac: Reports: No Symptoms Reported Abdominal: Reports: No Symptoms Reported Genitourinary Symptoms: Reports: No Symptoms Reported Musculoskeletal Complaints: Reports: No Symptoms Reported Neurological: Reports: No Symptoms Reported Skin: Reports: No Symptoms Reported Endocrine: Reports: No Symptoms Reported - Vitals Vitals: Last Vital Signs Temp 37 C 01/03/20 15:25 Pulse 82 01/03/20 15:25 Resp 18 01/03/20 15:25 BP 112/47 01/03/20 15:25 Pulse Ox 90 L 01/03/20 15:25 - Exam Constitutional: Present: Alert, Cooperative, Well developed, Well nourished, No distress, Acute distress ENT Exam: Present: normal ENT inspection, hard of hearing Neck: Present: non-tender, full range of motion, supple, normal inspection Breasts: Present: Exam deferred, Nontender Respiratory: Present: chest non-tender, normal breath sounds, rhonchi, expiration (prolonged) Cardiovascular/Chest: Present: normal peripheral pulses, regular rate, rhythm, no chest tenderness, no edema, no gallop, no JVD, no murmur, no rub Abdomen: Present: Normal bowel sounds, soft, nontender, nondistended, no rebound tenderness, no hepatospenomegaly, no masses /Rectal: Present: Exam deferred Extremity: Present: normal range of motion, non-tender, normal inspection Neurologic: Present: dumpman II-XII nml as tested Appearance: Present: appropriate appearance, appropriate insight, neat, no memory impairment Eye contact: Present: cooperative, good eye contact, normal speech Thoughts: Present: normal thought pattern, no apparent hallucination Assessment/Plan Plan Narrative: Continue IV antibiotics and respiratory therapy. Add a Acapella device. Hope to discharge to a long term home soon. - Problems/Diagnosis (1) Pneumonia Problem: Acute Qualifiers: Pneumonia type: due to unspecified organism Laterality: bilateral Lung location: lower lobe of lung Qualified Code(s): J18.9 - Pneumonia, unspecified organism (2) Altered mental status Problem: Acute Qualifiers: Altered mental status type: somnolence Qualified Code(s): R40.0 - Somnolence (3) Anemia Problem: Chronic Qualifiers: Anemia type: iron deficiency Iron deficiency anemia type: unspecified iron deficiency Qualified Code(s): D50.9 - Iron deficiency anemia, unspecified (4) Weakness Problem: Acute (5) Dementia Problem: Chronic Qualifiers: Dementia type: Alzheimer's disease Dementia behavioral disturbance: with behavioral disturbance (6) Confusion Problem: Acute (7) COPD (chronic obstructive pulmonary disease) Problem: Chronic Qualifiers: COPD type: emphysema Emphysema type: panlobular Qualified Code(s): J43.1 - Panlobular emphysema
[2020-01-03] MEDS: ENOXAPARIN SODIUM 40 MG/0.4 ML SYRG SC SCH (21:14)
[2020-01-03] MEDS: DONEPEZIL HCL 10 MG TABLET PO SCH (21:15)
[2020-01-03] MEDS: MELATONIN 3,000 MCG TABLET PO SCH (21:15)
[2020-01-03] MEDS: MONTELUKAST SODIUM 10 MG TABLET PO SCH (21:15)
[2020-01-04] MEDS: ALBUTEROL SULFATE/IPRATROPIUM 3 ML NEBU IH SCH ×4 (05:52→10:35)
[2020-01-04] MEDS: PANTOPRAZOLE SODIUM 40 MG TABLET.EC PO SCH (06:57)
[2020-01-04] MEDS: FLUTICASONE PROPION/SALMETEROL 14 PUFF DISK.W.DEV IH SCH (09:26)
[2020-01-04] MEDS: MEMANTINE HCL 10 MG TABLET PO SCH (09:26)
[2020-01-04] MEDS: DENTAL ADHESIVE 39 APPL TUBE TP SCH (09:26)
[2020-01-04] MEDS: ASPIRIN 81 MG TAB.CHEW PO SCH (09:26)
[2020-01-04] MEDS: ISOSORBIDE DINITRATE 10 MG TABLET PO SCH (09:26)
--- NOTE | 2020-01-04 10:24 | DS ---
(1) Pneumonia Problem: Acute Qualifiers: Pneumonia type: due to unspecified organism Laterality: bilateral Lung location: lower lobe of lung Qualified Code(s): J18.9 - Pneumonia, unspecified organism (2) Altered mental status Problem: Acute Qualifiers: Altered mental status type: somnolence Qualified Code(s): R40.0 - Somnolence (3) Anemia Problem: Chronic Qualifiers: Anemia type: iron deficiency Iron deficiency anemia type: unspecified iron deficiency Qualified Code(s): D50.9 - Iron deficiency anemia, unspecified (4) Weakness Problem: Acute (5) Dementia Problem: Chronic Qualifiers: Dementia type: Alzheimer's disease Dementia behavioral disturbance: with be havioral disturbance (6) Confusion Problem: Acute (7) COPD (chronic obstructive pulmonary disease) Problem: Chronic Qualifiers: COPD type: emphysema Emphysema type: panlobular Qualified Code(s): J43.1 - Panlobular emphysema Date of Discharge:: 01/04/20 Hospital Course: Mikaela Ontiveros is an 79-year-old female who still lives at home and cared for by her daughter. She became ill about a week ago and has had increasing confusion and increasing muscle weakness since then. It became severe enough today that she could not stand to walk to the bathroom and was brought to the hospital for evaluation. The ER testing demonstrated a right lower lobe infiltrate. She was given some IV fluids, respiratory therapy treatments, and started on Rocephin and azithromycin in the emergency room. Admitted to observation status for continued treatment of her pneumonia. Her oxygen saturations have been in the 90s 92% range on room air. Laboratory work shows a white count of 20,000 with a left shift. Although wheezing in the emergency room she is received several breathing treatments and on my exam there are only scattered wheezes that are faint. There are some diminished breath sounds in the right lower lobe consistent with her pneumonia. She is in no distress at the time of my exam this evening. She is alert and conversant and answers questions appropriately. Responded will to IV antibiotics and transitioned to PO antibiotics. PT consulted for generalized weakness which is gradually improving. Anemia remained stable during hospitalization. Oral intake not at baseline. Will discharge to senior care for further care Procedures Performed: none Care Plan Goals: PT for strengthening Plan of Treatment: discharge to senior care for further care Health Concerns: poor oral intake and generalized weakness and worsening dementia Assessment: Pneumonia Generalized weakness Poor oral intake Results and Findings: Lab Pending Results 12/27/19 14:30: WBC 20.6 H, RBC 3.55 L, Hgb 9.5 L, Hct 30.8 L, MCV 86.8, MCH 26.8 L, MCHC 30.8 L, RDW 18.1 H, Plt Count 283, MPV 10.9, Immature Gran % (Auto) 1.00 H, Immature Gran # (Auto) 0.20 H, Neutrophils % 88.7 H, Lymphocytes % 4.8 L , Monocytes % 5.1, Eosinophils % 0.2, Basophils % 0.2, Nucleated RBC % 0.0, Neutrophils # 18.2 H, Lymphocytes # 0.98 L, Monocytes # 1.0, Eosinophils # 0.1, Absolute Basophils 0.0 12/27/19 14:30: Sodium 137, Plasma Sodium 137, Potassium 4.3 D, Chloride 105, Carbon Dioxide 24.6, Anion Gap 11.7, BUN 28 H D, Creatinine 1.05, Est GFR (Non- Af Amer) 54 L D, BUN/Creatinine Ratio 26.7 H, Random Glucose 98, Calcium 8.6, Calcium Adj for Albumin 8.8, Total Bilirubin 0.3, AST 16, ALT 12 L, Alkaline Phosphatase 103, Troponin I Less than 0.017, B-Natriuretic Peptide 144, Total Protein 7.0, Albumin 3.4 12/27/19 14:30: Influenza Type A Ag Negative, Influenza Type B Ag Negative 12/27/19 14:30: Lactic Acid, Venous 1.6 12/27/19 16:11: Urine Color Yellow, Urine Appearance Clear, Urine pH 6.0, Ur Specific [place] 1.030, Urine Protein Negative, Urine Glucose (UA) Negative, Urine Ketones Negative, Urine Blood Negative, Urine Nitrate Negative, Urine Bilirubin Negative, Urine Urobilinogen Normal, Ur Leukocyte Esterase Negative, Urine RBC None seen, Urine WBC 0-5, Ur Epithelial Cells 0-5, Urine Bacteria None seen, Urine Culture Comments No culture indicated 12/28/19 06:16: WBC 22.0 H, RBC 3.25 L, Hgb 8.8 L, Hct 27.9 L, MCV 85.8, MCH 27.1, MCHC 31.5 L, RDW 18.0 H, Plt Count 254, MPV 11.2, Immature Gran % (Auto) 0.50 H, Immature Gran # (Auto) 0.10 H, Neutrophils % 83.2 H, Lymphocytes % 12.6 L, Monocytes % 3.2, Eosinophils % 0.3, Basophils % 0.2, Nucleated RBC % 0.0, Neutrophils # 18.3 H, Lymphocytes # 2.78, Monocytes # 0.7, Eosinophils # 0.1, Absolute Basophils 0.0 12/28/19 06:16: Sodium 140, Plasma Sodium 140, Potassium 4.0, Chloride 106, Carbon Dioxide 25.4, Anion Gap 12.6, BUN 24 H, Creatinine 0.92, Est GFR (Non-Af Amer) 62, BUN/Creatinine Ratio 26.1 H, Random Glucose 85, Calcium 8.8, Calcium Adj for Albumin 9.3, Total Bilirubin 0.4, AST 14, ALT 8 L, Alkaline Phosphatase 96, Total Protein 6.4, Albumin 3.0 L 12/28/19 18:40: Sodium 138, Plasma Sodium 138, Potassium 4.4, Chloride 104, Carbon Dioxide 24.2, Anion Gap 14.2 H, BUN 20, Creatinine 1.08, Est GFR (Non-Af Amer) 52 L, BUN/Creatinine Ratio 18.5, Random Glucose 124 H D, Calcium 8.5 12/29/19 06:15: WBC 15.1 H D, RBC 3.41 L, Hgb 9.1 L, Hct 29.1 L, MCV 85.3, MCH 26.7 L, MCHC 31.3 L, RDW 17.9 H, Plt Count 263, MPV 10.3, Immature Gran % (Auto) 0.80 H, Immature Gran # (Auto) 0.12 H, Neutrophils % 84.9 H, Lymphocytes % 10.7 L, Monocytes % 3.1, Eosinophils % 0.2, Basophils % 0.3, Nucleated RBC % 0.0, Neutrophils # 12.8 H, Lymphocytes # 1.61, Monocytes # 0.5, Eosinophils # 0.0, Absolute Basophils 0.0 12/30/19 06:25: WBC 11.2 H D, RBC 3.34 L, Hgb 8.9 L, Hct 28.9 L, MCV 86.5, MCH 26.6 L, MCHC 30.8 L, RDW 17.9 H, Plt Count 275, MPV 10.2, Immature Gran % (Auto) 0.50 H, Immature Gran # (Auto) 0.06 H, Neutrophils % 71.3, Lymphocytes % 21.6, Monocytes % 4.5, Eosinophils % 1.7, Basophils % 0.4, Nucleated RBC % 0.0, Neutrophils # 8.0 H, Lymphocytes # 2.41, Monocytes # 0.5, Eosinophils # 0.2, Absolute Basophils 0.1 12/30/19 06:25: Sodium 141, Plasma Sodium 141, Potassium 4.0, Chloride 107 H, Carbon Dioxide 25.9, Anion Gap 12.1, BUN 19, Creatinine 0.83, Est GFR (Non-Af Amer) 70 D, BUN/Creatinine Ratio 22.9 H, Random Glucose 85 D, Calcium 8.7, Calcium Adj for Albumin 9.1, Total Bilirubin 0.2, AST 13, ALT 11 L, Alkaline Phosphatase 96, Total Protein 6.9, Albumin 3.1 L 01/01/20 04:30: WBC 9.1, RBC 3.38 L, Hgb 9.1 L, Hct 29.0 L, MCV 85.8, MCH 26.9 L, MCHC 31.4 L, RDW 17.9 H, Plt Count 308, MPV 10.4, Immature Gran % (Auto) 1.50 H, Immature Gran # (Auto) 0.14 H, Neutrophils % 62.3, Lymphocytes % 26.8, Monocytes % 7.2, Eosinophils % 1.9, Basophils % 0.3, Nucleated RBC % 0.0, Neutrophils # 5.7, Lymphocytes # 2.44, Monocytes # 0.7, Eosinophils # 0.2, Absol gavino Basophils 0.0 01/01/20 04:30: Sodium 141, Plasma Sodium 141, Potassium 3.2 L, Chloride 107 H, Carbon Dioxide 24.5, Anion Gap 12.7, BUN 25 H, Creatinine 0.73, Est GFR (Non-Af Amer) 82, BUN/Creatinine Ratio 34.2 H, Random Glucose 94, Calcium 8.9, Calcium Adj for Albumin 9.4, Total Bilirubin 0.2, AST 15, ALT 10 L, Alkaline Phosphatase 82, Total Protein 6.6, Albumin 3.0 L 01/02/20 05:10: WBC 8.9, RBC 3.66 L, Hgb 9.7 L, Hct 31.2 L, MCV 85.2, MCH 26.5 L, MCHC 31.1 L, RDW 18.0 H, Plt Count 321, MPV 10.4, Immature Gran % (Auto) 1.70 H, Immature Gran # (Auto) 0.15 H, Neutrophils % 58.2, Lymphocytes % 28.0, Monocytes % 9.5 H, Eosinophils % 2.0, Basophils % 0.6, Nucleated RBC % 0.0, Neutrophils # 5.2, Lymphocytes # 2.48, Monocytes # 0.8, Eosinophils # 0.2, Absolute Basophils 0.1 01/02/20 05:10: Sodium 141, Plasma Sodium 141, Potassium 3.8, Chloride 106, Carbon Dioxide 24.9, Anion Gap 13.9 H, BUN 21, Creatinine 0.82, Est GFR (Non-Af Amer) 71, BUN/Creatinine Ratio 25.6 H, Random Glucose 88, Calcium 8.8, Calcium Adj for Albumin 9.2, Total Bilirubin 0.3, AST 25, ALT 23, Alkaline Phosphatase 91, Total Protein 6.8, Albumin 3.1 L Discharge Location: [facility] Disposition: SNF Condition: Fair Face to Face Encounter completed per [facility] Guidelines: No Level of Care: SNF Discharge Activity: Activity as tolerated, Weight bearing Discharge Diet: General/regular food Residential Therapy: Physical Therapy, Occupation Therapy Additional Patient Instructions (free text): [facility] and OT to evaluate and treat. Complete Home Medications List: Complete Home Medication List: Acetaminophen [Tylenol] 500 mg PO Q3H PRN 08/30/19 Albuterol Sulfate [Proair Respiclick] 90 mcg INHALATION BID PRN 08/30/19 Albuterol Sulfate/Ipratropium [Duoneb 2.5-0.5MG/3ML Soln] 3 ml INHALATION QID 08/30/19 Aspirin 81 mg PO DAILY 08/30/19 Atorvastatin Calcium 10 mg PO DAILY 08/30/19 Celecoxib 200 mg PO DAILY 08/30/19 Diltiazem HCl [Diltiazem 12Hr ER] 120 mg PO DAILY 08/30/19 Donepezil HCl 10 mg PO HS 08/30/19 Esomeprazole Magnesium 40 mg PO DAILY 08/30/19 Fluticasone Propion/Salmeterol [Advair 500-50 Diskus] 2 puff INHALATION BID 08/30/19 Ipratropium [place] [Atrovent] 0.5 mg INHALATION QID PRN 08/30/19 Isosorbide Dinitrate 30 mg PO DAILY 08/30/19 Meclizine HCl 25 mg PO TID 08/30/19 Melatonin 5 mg PO HS 08/30/19 Memantine HCl 5 mg PO DAILY 08/30/19 Montelukast Sodium [Singulair] 10 mg PO HS 08/30/19 Nystatin 15 gm TOPICAL DAILY 08/30/19 Polyethylene Glycol 3350 [Gavilax] 17 gm PO DAILY 08/30/19 Pregabalin [Lyrica] 50 mg PO TID 08/30/19 guaiFENesin [Mucus ER] 600 mg PO BID PRN 08/30/19 traMADol HCL [Tramadol HCl] 50 mg PO Q6H PRN 08/30/19 Fluticasone Propionate [Flonase] 2 spray NS DAILY 09/01/19 Mag Hydrox/Aluminum Hyd/Simeth [Marisol-Lanta Liquid] 15 ml PO QID PRN 12/27/19 Phenyleph/Mineral Oil/Petrolat [Preparation H Ointment] 1 appl RC QID PRN 12/27/19 Cefdinir [Omnicef] 300 mg PO BID #20 cap 01/04/20 Cefdinir [Omnicef] 300 mg PO Q12H #20 cap 01/04/20 Dental Adhesive [Fixodent Denture Adhesive] 1 appl TOPICAL DAILY tube 01/04/20 Ondansetron [Zofran Odt] 4 mg PO Q6H PRN #30 tab 01/04/20
[2020-01-04] MEDS: ACETAMINOPHEN 500 MG TABLET PO PRN (10:45)
[2020-01-04] MEDS: traMADol HCL 50 MG TABLET PO PRN (10:46)
[2020-01-04] MEDS ORDERED: CEFDINIR 300 MG CAPSULE PO SCH ×2 (11:00→21:00)
[2020-01-04] MEDS: ONDANSETRON HCL 4 MG TABLET PO PRN (11:41)
[2020-01-04 12:19] VITALS: BP 141/74
== END 2020-01-04 12:30 | DRG 194 ==
LOC: MS 13:53 → ER 13:53 → MS 17:00
PROVIDERS: ADMIT Family Medicine; ATTEND Family Medicine
DX: Z87.891 Personal history of nicotine dependence; E78.5 Hyperlipidemia, unspecified; R53.1 Weakness; F03.91 Unspecified dementia, unspecified severity, with behavioral disturbance; D50.9 Iron deficiency anemia, unspecified; D72.829 Elevated white blood cell count, unspecified; J43.1 Panlobular emphysema; J18.9 Pneumonia, unspecified organism
CPT/HCPCS: 36415; 71020; 71046; 71260; 80048; 80053; 81001; 83519; 83605; 83880; 84484; 85025; 87040; 87400; 87449; 93005; 94640; 94664; 94760; 96365; 97110; 97116; 97162; 97530; 99283; 99284; G0378; Q9967